=== PATIENT | female | born 1990 | race Caucasian/White ===

== ENCOUNTER 2017-06-29 12:00 | Outpatient (CLI) | payer OTHER | END 2017-06-29 12:01 | disposition home or self-care (01) | LOC: LAB.R 12:00 | PROVIDERS: ATTEND Registered Nurse | DX: Z11.3 Encounter for screening for infections with a predominantly sexual mode of transmission (principal) | CPT/HCPCS: 87491; 87591 ==

== ENCOUNTER 2017-07-11 11:03 | Outpatient (CLI) | payer OTHER ==
[2017-07-11 12:28] LABS: THYROID STIMULATING HORMONE 0.94 uIU/mL (0.34-5.60)
[2017-07-11 12:34] LABS: PROLACTIN 4.95 ng/mL
== END 2017-07-11 11:04 | disposition home or self-care (01) ==
LOC: LAB 11:03
PROVIDERS: ATTEND Registered Nurse
DX: Z31.49 Encounter for other procreative investigation and testing (principal)
CPT/HCPCS: 36415; 81599; 82627; 84144; 84146; 84402; 84403; 84443

== ENCOUNTER 2017-07-14 16:55 | Outpatient (CLI) | payer OTHER ==
--- NOTE | 2017-07-15 12:01 | Ultrasound Report ---
REVISED: THIS REPORT WAS ORIGINALLY SIGNED ON 07/15/2017 @ 1336. THE PRIMARY CARE PROVIDER FIELD REVISED ON 07/18/2017. PELVIC ULTRASOUND: 07/14/2017 CLINICAL INDICATION: Difficulty getting . TECHNIQUE: Transabdominal pelvic ultrasound performed for global evaluation. Transvaginal pelvic ultrasound performed for detailed evaluation. Real-time scanning performed and static images obtained. FINDINGS: The uterus is anteverted, measuring 8.5 x 4.8 x 3.2 cm. The endometrial echo complex measures 13 mm. No focal myometrial lesion is present. The right ovary measures 3.9 x 2.0 x 1.5 cm, and is unremarkable. The left ovary measures 3.6 x 3.2 x 2.3 cm, and demonstrates a 2.2 cm hemorrhagic cyst. Trace free fluid is present. IMPRESSION: SMALL LEFT HEMORRHAGIC CYST. NORMAL UTERUS AND RIGHT OVARY. TD: 07/15/2017 12:00 MTDTerry
== END 2017-07-14 16:56 | disposition home or self-care (01) ==
LOC: DI 16:55
PROVIDERS: ATTEND Registered Nurse
DX: Z31.49 Encounter for other procreative investigation and testing (principal); N83.202 Unspecified ovarian cyst, left side
CPT/HCPCS: 76830; 76856

== ENCOUNTER 2017-08-08 10:01 | Outpatient (CLI) | payer OTHER | END 2017-08-08 10:02 | disposition home or self-care (01) | LOC: LAB 10:01 | PROVIDERS: ATTEND Registered Nurse | DX: Z31.89 Encounter for other procreative management (principal) | CPT/HCPCS: 36415; 84144 ==

== ENCOUNTER 2017-08-18 10:43 | Outpatient (CLI) | payer OTHER ==
[2017-08-18] MEDS ORDERED: IOTHALAMATE MEGLUMINE 50 ML VIAL ONE (11:15)
[2017-08-18] MEDS ORDERED: IOTHALAMATE MEGLUMINE 50 ML VIAL IVP ONE (12:22)
--- NOTE | 2017-08-18 13:16 | XRAY Report ---
HYSTEROSALPINGOGRAM: 08/18/2017 COMPARISON: No comparison. INDICATION: Infertility workup. TECHNIQUE: The stoneworking belt sander cannulated the cervix and injected contrast into the endometrial canal. FINDINGS: Total fluoroscopy time: 46 seconds. Total images: 4 The endometrial canal demonstrates a normal morphology. No filling defects or septa. There is bilateral fill of the fallopian tubes with bilateral spill of contrast into the pelvic cavity. IMPRESSION: NEGATIVE HSG. TD: 08/18/2017 13:15 [facility]
== END 2017-08-18 10:44 | disposition home or self-care (01) ==
LOC: DI 10:43
PROVIDERS: ATTEND Registered Nurse
DX: N97.9 Female infertility, unspecified (principal)
CPT/HCPCS: 58340; 74740; Q9961

== ENCOUNTER 2017-10-11 10:02 | Emergency (ER) | payer OTHER ==
[2017-10-11 11:07] LABS: BASOPHILS % (AUTO) 0.3 %; EOSINOPHILS # (AUTO) 0.1 10^3/uL (0.0-0.7); HGB - HEMOGLOBIN 12.2 g/dL (12.0-16.0); LYMPHOCYTES # (AUTO) 0.9 10^3/uL (1.5-3.5); LYMPHOCYTES % (AUTO) 18.5 %; MEAN CORPUSCULAR HEMOGLOBIN 31.8 pg (27.0-31.0); MEAN CORPUSCULAR HGB CONC 34.8 g/dL (32.0-36.0); MEAN CORPUSCULAR VOLUME 91.4 fL (81.0-99.0); MEAN PLATELET VOLUME 8.4 fL (7.9-10.8); MONOCYTES # (AUTO) 0.4 10^3/uL (0.0-1.0); MONOCYTES % (AUTO) 8.6 %; NEUTROPHILS # (AUTO) 3.6 10^3/uL (1.5-6.6); NEUTROPHILS % (AUTO) 71.6 %; PLT - PLATELET COUNT 143 10^3/uL (130-450); RED BLOOD COUNT 3.83 10^6/uL (4.20-5.40); RED CELL DISTRIBUTION WIDTH 12.7 % (12.0-15.0); WHITE BLOOD COUNT 5.1 x10^3/uL (4.8-10.8)
[2017-10-11 11:23] LABS: ALBUMIN 4.3 g/dL (3.2-5.5); ALBUMIN/GLOBULIN RATIO 1.4 (1.0-2.2); BILIRUBIN,TOTAL 0.8 mg/dL (0.2-1.0); CALCIUM 9.1 mg/dL (8.5-10.3); CREATININE 0.4 mg/dL (0.4-1.0); TOTAL PROTEIN 7.4 g/dL (6.7-8.2)
--- NOTE | 2017-10-11 11:42 | ED Physician Documentation ---
PD HPI FEMALE - Stated complaint Stated Complaint: BLEEDING/7WKS PREG - Chief complaint Chief Complaint: General - History obtained from History obtained from: Patient - History of Present Illness Timing - onset: Today Timing - duration: Hours Timing - details: Abrupt onset, Still present Associated symptoms: Vaginal bleeding Contributing factors: OB-HANDY WORKER History: G (1), P (0) Similar symptoms before: Has not had sx before Recently seen: Other (infertility treatment.) - Additional information Additional information: Previously healthy 27 year old female with early who went through intrauterine insemination has established and she thinks that she is about 7-1/2 weeks along and she has not had an ultrasound this . She has had a quantitative hCG at 4 weeks 3 days was 2500. She is developed some spotting this morning and she has passed pea-sized clot. She initially had some brown blood this is followed by some bright red blood on the tissue and the pea-sized clot. She has had some mild cramping all long and during this . Review of Systems Constitutional: denies: Fever Eyes: denies: Decreased vision Ears: denies: Ear pain Nose: denies: Congestion Respiratory: denies: Cough GI: reports: Nausea. denies: Vomiting : denies: Dysuria PD PAST MEDICAL HISTORY - Past Medical History Past Medical History: No - Past Surgical History Past Surgical History: No - Present Medications Home Medications: Ambulatory Orders Medication Instructions Recorded Confirmed Pnv No.121/Iron/Folic Acid 10/11/17 [ Multivitamin Tablet] - Allergies Allergies/Adverse Reactions: Allergies Allergy/AdvReac Type Severity Reaction Status Date / Time amoxicillin AdvReac Hives Verified 10/11/17 10:23 Penicillins AdvReac Hives Verified 10/11/17 10:23 sulfamethoxazole AdvReac Hives Verified 10/11/17 10:23 [From Bactrim] trimethoprim [From Bactrim] AdvReac Hives Verified 10/11/17 10:23 - Social History Does the pt smoke?: No Smoking Status: Never smoker Does the pt drink ETOH?: No Does the pt have substance abuse?: No - Immunizations Immunizations are current?: Yes - POLST Patient has POLST: No PD ED PE NORMAL - Vitals Vital signs reviewed: Yes (normal ) - General General: Alert and oriented X 3, No acute distress, Well developed/nourished - HEENT HEENT: Atraumatic, PERRL, EOMI - Respiratory Respiratory: No respiratory distress - Abdomen Abdomen: Soft, Non tender - Back Back: No CVA TTP, No spinal TTP - Derm Derm: Normal color, Warm and dry, No rash - Extremities Extremities: No deformity, No edema - Neuro Neuro: No motor deficit, No sensory deficit Eye Opening: Spontaneous Motor: Obeys Commands Verbal: Oriented GCS Score: 15 - Psych Psych: Normal mood, Normal affect Results - Vitals Vitals: Vital Signs - 24 hr 10/11/17 10/11/17 10:18 12:26 Temperature 36.6 C Heart Rate 91 68 Respiratory 15 18 Rate Blood Pressure 115/78 101/64 O2 Saturation 99 100 Oxygen O2 Source Room air - Labs Labs: Laboratory Tests 10/11/17 10/11/17 10/11/17 10:55 10:57 10:57 WBC 5.1 RBC 3.83 L Hgb 12.2 Hct 35.0 L MCV 91.4 MCH 31.8 H MCHC 34.8 RDW 12.7 Plt Count 143 MPV 8.4 Neut # 3.6 Lymph # 0.9 L Mineral # 0.4 Eos # 0.1 Baso # 0.0 Absolute Nucleated RBC 0.00 Nucleated RBC % 0.0 Sodium 134 L Potassium 3.6 Chloride 102 Carbon Dioxide 24 Anion Gap 8.0 BUN 8 Creatinine 0.4 Estimated GFR (MDRD) 190 Glucose 87 Calcium 9.1 Total Bilirubin 0.8 AST 17 ALT 15 Alkaline Phosphatase 28 L Total Protein 7.4 Albumin 4.3 Globulin 3.1 Albumin/Globulin Ratio 1.4 Lipase 22 HCG, Quant Urine Color Urine Clarity Urine pH Ur Specific Frederick Urine Protein Urine Glucose (UA) Urine Ketones Urine Occult Blood Urine Nitrite Urine Bilirubin Urine Urobilinogen Ur Leukocyte Esterase Urine RBC Urine WBC Ur Squamous Epith Cells Amorphous Sediment Urine Bacteria Ur Microscopic Review Urine Culture Comments Blood Type A POSITIVE 10/11/17 10/11/17 10:57 12:12 WBC RBC Hgb Hct MCV MCH MCHC RDW Plt Count MPV Neut # Lymph # Mineral # Eos # Baso # Absolute Nucleated RBC Nucleated RBC % Sodium Potassium Chloride Carbon Dioxide Anion Gap BUN Creatinine Estimated GFR (MDRD) Glucose Calcium Total Bilirubin AST ALT Alkaline Phosphatase Total Protein Albumin Globulin Albumin/Globulin Ratio Lipase HCG, Quant 799598.00 Urine Color YELLOW Urine Clarity CLEAR Urine pH 6.0 Ur Specific Frederick 1.010 Urine Protein NEGATIVE Urine Glucose (UA) NEGATIVE Urine Ketones 40 H Urine Occult Blood LARGE H Urine Nitrite NEGATIVE Urine Bilirubin NEGATIVE Urine Urobilinogen 0.2 (NORMAL) Ur Leukocyte Esterase NEGATIVE Urine RBC 6-10 H Urine WBC 0-3 Ur Squamous Epith Cells FEW Squamous Amorphous Sediment Few Urine Bacteria Moderate H Ur Microscopic Review INDICATED Urine Culture Comments INDICATED Blood Type Procedures - Bedside sono Bedside sono by EMP: With use of bedside ultrasound a gestational sac with a diameter consistent with 8 weeks 2 days is present and there is a fetus present inside with a visible heart rate. PD MEDICAL DECISION MAKING - ED course Complexity details: reviewed results, re-evaluated patient, considered differential, d/w patient ED course: 27-year-old primip female with early going through fertility treatment has developed some first trimester spotting and on ultrasound examination appears to have a viable fetus. I have given the patient some reassuring statistics and we will place her on miscarriage precautions. She will follow-up with her HANDY WORKER. Departure - Departure Disposition: 01 Home, Self Care Clinical Impression: Threatened in first trimester Condition: Stable Instructions: ED Miscarriage Poss Follow-Up: PEG CALVO [Primary Care Provider] - Discharge Date/Time: 10/11/17 12:40
[2017-10-11 12:20] LABS: BILIRUBIN,URINE NEGATIVE (NEGATIVE); GLUCOSE, URINE (UA) NEGATIVE (NEGATIVE); KETONES,URINE (UA) 40 mg/dL (NEGATIVE); LEUKOCYTE ESTERASE, URINE NEGATIVE (NEGATIVE); NITRITE,URINE NEGATIVE (NEGATIVE); OCCULT BLOOD,URINE LARGE (NEGATIVE); PROTEIN,URINE NEGATIVE (NEGATIVE); UROBILINOGEN,URINE 0.2 (NORMAL) E.U./dL (NORMAL)
[2017-10-11 12:21] LABS: CLARITY,URINE CLEAR (CLEAR)
[2017-10-11 12:27] VITALS: BP 101/64
[2017-10-11 12:31] LABS: AMORPHOUS SEDIMENT,UR Few /LPF; BACTERIA,URINE Moderate /HPF (None Seen); SQUAMOUS EPITHELIAL CELL,UR FEW Squamous (<= Few)
== END 2017-10-11 12:40 | disposition home or self-care (01) ==
LOC: ED 10:02
DX: O20.0 Threatened abortion (principal)
CPT/HCPCS: 36415; 80053; 81001; 81003; 83690; 84702; 85025; 86900; 86901; 87086; 99283

== ENCOUNTER 2017-10-28 14:59 | Outpatient (CLI) | payer OTHER ==
[2017-10-28 15:22] LABS: BASOPHILS % (AUTO) 0.7 %; EOSINOPHILS # (AUTO) 0.1 10^3/uL (0.0-0.7); HGB - HEMOGLOBIN 12.1 g/dL (12.0-16.0); LYMPHOCYTES % (AUTO) 16.2 %; MEAN CORPUSCULAR HGB CONC 34.8 g/dL (32.0-36.0); MEAN PLATELET VOLUME 8.8 fL (7.9-10.8); MONOCYTES # (AUTO) 0.5 10^3/uL (0.0-1.0); MONOCYTES % (AUTO) 7.8 %; NEUTROPHILS # (AUTO) 4.5 10^3/uL (1.5-6.6); NEUTROPHILS % (AUTO) 74.3 %; PLT - PLATELET COUNT 139 10^3/uL (130-450); RED BLOOD COUNT 3.79 10^6/uL (4.20-5.40); RED CELL DISTRIBUTION WIDTH 12.6 % (12.0-15.0)
[2017-10-28 15:32] LABS: BILIRUBIN,URINE NEGATIVE (NEGATIVE); GLUCOSE, URINE (UA) NEGATIVE (NEGATIVE); KETONES,URINE (UA) >=80 mg/dL (NEGATIVE); LEUKOCYTE ESTERASE, URINE NEGATIVE (NEGATIVE); NITRITE,URINE NEGATIVE (NEGATIVE); OCCULT BLOOD,URINE NEGATIVE (NEGATIVE); PROTEIN,URINE NEGATIVE (NEGATIVE); UROBILINOGEN,URINE 0.2 (NORMAL) E.U./dL (NORMAL)
[2017-10-28 15:33] LABS: CLARITY,URINE CLEAR (CLEAR)
[2017-10-28 16:01] LABS: BACTERIA,URINE Rare /HPF (None Seen); RBC,URINE 0-5 /HPF (0-5); SQUAMOUS EPITHELIAL CELL,UR FEW Squamous (<= Few)
[2017-10-29 17:01] LABS: HIV AG/AB 4TH GEN NON-REACTIVE (NON-REACTIVE)
[2017-10-29 18:06] LABS: HEPATITIS B SURFACE ANTIGEN NON-REACTIVE (NON-REACTIVE); HEPATITIS C ANTIBODY NON-REACTIVE (NON-REACTIVE)
== END 2017-10-28 15:00 | disposition home or self-care (01) ==
LOC: LAB 14:59
PROVIDERS: ATTEND Registered Nurse
DX: Z36.9 Encounter for antenatal screening, unspecified (principal)
CPT/HCPCS: 36415; 81001; 81599; 85025; 86592; 86762; 86803; 86850; 86900; 86901; 87340; 87389

== ENCOUNTER 2018-01-05 12:30 | Outpatient (CLI) | payer OTHER ==
--- NOTE | 2018-01-05 16:44 | Ultrasound Report ---
Procedure Date: 01/05/2018 Accession Number: [id number] / [id number] Procedure: US - OB Detailed Eval CPT Code: FULL RESULT: EXAM: OB Detailed Eval DATE: 01/05/2018 2:05 PM CLINICAL HISTORY: ENCTR FOR OTHER SPECIFIED SCREENING TECHNIQUE: Real-time scanning was performed with medical sales representative static images obtained. COMPARISON: None LAST MENSTRUAL PERIOD: 08/17/2017 Clinical Age: 20 weeks 1 days US Age: 21 weeks 1 days EFW Hadlock: 412 grams EFW % Hadlock: 95% Heart Rate: 152 bpm EDC: 05/24/2018 US EDC: 05/17/2018 BPD Hadlock: 21 weeks 2 days; Mean mm 50 HC Hadlock: 21 weeks 0 days; Mean mm 186 AC Hadlock: 21 weeks 6 days; Mean mm 169 FL Hadlock: 20 weeks 4 days; Mean mm 34 Presentation: Transverse Placental Location: Anterior Cervical Length: 5.6 cm Amniotic Fluid: SHAYY Subjectively normal FINDINGS: There is a single live intrauterine gestation in variable presentation with an anterior placenta without evidence of previa and a centrally inserted three-vessel cord with a heart rate of 152 beats per minute. Visualization of the facial structures including orbits, nose and lips was somewhat limited due to motion. Visualized portions appear normal. The following anatomic structures were visualized and appear normal: The intracranial contents, including the ventricles and posterior fossa; the spine; the heart, including 4 chamber view and outflow tracts, and diaphragm; the abdominal contents, including the stomach, the bilateral kidneys, and urinary bladder, as well as a normal 3-vessel cord insertion; 4 limbs. IMPRESSION: Single live intrauterine gestation with a sonographic age of 21 weeks and 1 day. Limited visualization of the facial structures due to motion.
== END 2018-01-05 12:31 | disposition home or self-care (01) ==
LOC: DI 12:30
PROVIDERS: ATTEND Nurse Practitioner Obstetrics & Gynecology
DX: Z36.89 Encounter for other specified antenatal screening (principal)
CPT/HCPCS: 76811

== ENCOUNTER 2018-01-13 13:05 | Outpatient (CLI) | payer OTHER ==
--- NOTE | 2018-01-19 14:37 | Ultrasound Report ---
Procedure Date: 01/13/2018 Accession Number: [id number] / [id number] Procedure: US - OB F/U or Repeat CPT Code: FULL RESULT: EXAM: OB F/U or Repeat DATE: 01/13/2018 2:00 PM CLINICAL HISTORY: ENCNTR FOR SUPRVSN OF NORMAL FIRST PREG TECHNIQUE: Real-time scanning was performed with publications sales representative static images obtained. COMPARISON: None LAST MENSTRUAL PERIOD: 08/17/2017 Clinical Age: 21 weeks 2 days US Age: 22 weeks 2 days EFW Hadlock: 489 grams EFW % Hadlock: 90% Heart Rate: 150 bpm BPD Hadlock: 22 weeks 3 days; Mean mm 54 HC Hadlock: 21 weeks 6 days; Mean mm 196 AC Hadlock: 22 weeks 2 days; Mean mm 173 FL Hadlock: 22 weeks 3 days; Mean mm 39 Presentation: Variable Placental Location: Anterior Cervical Length: 5.4 cm Amniotic Fluid: Subjectively normal. FINDINGS: Single live intrauterine gestation with appropriate interval growth. Completion of the survey with good visualization of the nose and lips which appear normal. IMPRESSION: Appropriate interval growth of live intrauterine gestation with sonographic age of 22 weeks and 2 days on the current exam.
== END 2018-01-13 13:06 | disposition home or self-care (01) ==
LOC: DI 13:05
PROVIDERS: ATTEND Nurse Practitioner Obstetrics & Gynecology
DX: Z34.02 Encounter for supervision of normal first pregnancy, second trimester (principal)
CPT/HCPCS: 76816

== ENCOUNTER 2018-02-21 11:41 | Outpatient (CLI) | payer OTHER ==
[2018-02-21 13:12] LABS: BASOPHILS % (AUTO) 0.3 %; EOSINOPHILS # (AUTO) 0.1 10^3/uL (0.0-0.7); EOSINOPHILS % (AUTO) 0.7 %; HGB - HEMOGLOBIN 11.1 g/dL (12.0-16.0); LYMPHOCYTES # (AUTO) 0.9 10^3/uL (1.5-3.5); LYMPHOCYTES % (AUTO) 11.2 %; MEAN CORPUSCULAR HEMOGLOBIN 34.2 pg (27.0-31.0); MEAN CORPUSCULAR HGB CONC 35.6 g/dL (32.0-36.0); MEAN CORPUSCULAR VOLUME 96.1 fL (81.0-99.0); MEAN PLATELET VOLUME 7.3 fL (7.9-10.8); MONOCYTES # (AUTO) 0.5 10^3/uL (0.0-1.0); MONOCYTES % (AUTO) 6.5 %; NEUTROPHILS # (AUTO) 6.7 10^3/uL (1.5-6.6); NEUTROPHILS % (AUTO) 81.3 %; PLT - PLATELET COUNT 167 10^3/uL (130-450); RED BLOOD COUNT 3.24 10^6/uL (4.20-5.40); RED CELL DISTRIBUTION WIDTH 13.8 % (12.0-15.0); WHITE BLOOD COUNT 8.3 x10^3/uL (4.8-10.8)
== END 2018-02-21 11:42 | disposition home or self-care (01) ==
LOC: LAB 11:41
PROVIDERS: ATTEND Registered Nurse
DX: Z34.82 Encounter for supervision of other normal pregnancy, second trimester (principal)
CPT/HCPCS: 36415; 82950; 85025; 86850

== ENCOUNTER 2018-02-24 08:04 | Outpatient (CLI) | payer OTHER | END 2018-02-24 08:05 | disposition home or self-care (01) | LOC: LAB 08:04 | PROVIDERS: ATTEND Registered Nurse | DX: R73.02 Impaired glucose tolerance (oral) (principal) | CPT/HCPCS: 36415; 82951; 82952 ==

== ENCOUNTER 2018-04-26 11:37 | Outpatient (CLI) | payer OTHER ==
[2018-04-28 13:32] LABS: HIV AG/AB 4TH GEN NON-REACTIVE (NON-REACTIVE)
[2018-04-28 14:52] LABS: HEPATITIS C ANTIBODY NON-REACTIVE (NON-REACTIVE)
== END 2018-04-26 11:38 | disposition home or self-care (01) ==
LOC: LAB 11:37
PROVIDERS: ATTEND Registered Nurse
DX: Z33.1 Pregnant state, incidental (principal)
CPT/HCPCS: 36415; 81599; 86803; 87389; 87491; 87591; 87797

== ENCOUNTER 2018-04-26 12:03 | Outpatient (CLI) | payer OTHER | END 2018-04-26 12:04 | disposition home or self-care (01) | LOC: LAB.R 12:03 | PROVIDERS: ATTEND Registered Nurse | DX: Z33.1 Pregnant state, incidental (principal) | CPT/HCPCS: 87491; 87591; 87797 ==

== ENCOUNTER 2018-05-21 00:33 | Inpatient (IN) | payer OTHER ==
[2018-05-21] MEDS ORDERED: SODIUM CHLORIDE FLUSH 0.9% 10 ML SYRINGE IVP PRN (01:00)
[2018-05-21] MEDS: LACTATED RINGERS 1,000 ML IV SCH ×3 (01:50→07:00)
[2018-05-21 02:04] LABS: BASOPHILS # (AUTO) 0.1 10^3/uL (0.0-0.1); BASOPHILS % (AUTO) 0.6 %; EOSINOPHILS # (AUTO) 0.1 10^3/uL (0.0-0.7); EOSINOPHILS % (AUTO) 0.8 %; HGB - HEMOGLOBIN 11.8 g/dL (12.0-16.0); LYMPHOCYTES # (AUTO) 1.1 10^3/uL (1.5-3.5); LYMPHOCYTES % (AUTO) 11.2 %; MEAN CORPUSCULAR HEMOGLOBIN 33.5 pg (27.0-31.0); MEAN CORPUSCULAR HGB CONC 34.3 g/dL (32.0-36.0); MEAN CORPUSCULAR VOLUME 97.7 fL (81.0-99.0); MEAN PLATELET VOLUME 7.8 fL (7.9-10.8); MONOCYTES # (AUTO) 0.8 10^3/uL (0.0-1.0); MONOCYTES % (AUTO) 8.9 %; NEUTROPHILS # (AUTO) 7.4 10^3/uL (1.5-6.6); NEUTROPHILS % (AUTO) 78.5 %; PLT - PLATELET COUNT 134 10^3/uL (130-450); RED BLOOD COUNT 3.51 10^6/uL (4.20-5.40); RED CELL DISTRIBUTION WIDTH 13.4 % (12.0-15.0); WHITE BLOOD COUNT 9.5 x10^3/uL (4.8-10.8)
[2018-05-21] MEDS ORDERED: fent/BUPIV 2 MCG/0.125% 250 ML EP ONE (02:18)
[2018-05-21] MEDS ORDERED: NALOXONE 0.4 MG/ML VIAL IVP PRN (03:09)
[2018-05-21] MEDS ORDERED: NALBUPHINE 10 MG/ML AMP IVP PRN (03:09)
[2018-05-21] MEDS ORDERED: ePHEDrine 50 MG/ML VIAL IVP PRN (03:09)
[2018-05-21] MEDS ORDERED: ONDANSETRON 4 MG/2 ML VIAL IVP PRN (03:09)
[2018-05-21] MEDS ORDERED: diphenhydrAMINE INJ 50 MG/ML VIAL IVP PRN (03:09)
[2018-05-21] MEDS ORDERED: LACTATED RINGERS 500 ML IV ONE (03:09)
[2018-05-21] MEDS ORDERED: METOCLOPRAMIDE 10 MG/2 ML VIAL IVP PRN (03:09)
--- NOTE | 2018-05-21 09:15 | HISTORY & PHYSICAL EXAMINATION ---
Admit History - Visit Reason Visit Reason: Contractions - : 1 Parity: 0 Premature: 0 Ectopic: 0 : 0 Care: positive: [facility] Risk/History: positive: None Complications This : positive: None Smoking Status: Never smoker - Mother's Labs Mother's Blood Type: positive: A Mother's RH: positive: Positive GBS: positive: Group B Step Negative Rubella Status: positive: Equivocal Meds/Allgy - Home Medications Home Medications: Ambulatory Orders Medication Instructions Recorded Confirmed Pnv No.121/Iron/Folic Acid 10/11/17 [ Multivitamin Tablet] - Allergies Allergies/Adverse Reactions: Allergies Allergy/AdvReac Type Severity Reaction Status Date / Time amoxicillin AdvReac Hives Verified 10/11/17 10:23 Penicillins AdvReac Hives Verified 10/11/17 10:23 sulfamethoxazole AdvReac Hives Verified 10/11/17 10:23 [From Bactrim] trimethoprim [From Bactrim] AdvReac Hives Verified 10/11/17 10:23 Review of Systems - Constitutional Constitutional: denies: Fatigue, Fever, Chills, Malaise - Eyes Eyes: denies: Pain, Blurred vision, Spots in vision, Dipolpia - Cardiovascular Cariovascular: denies: Irregular heart rate, Palpitations, Chest pain, Edema - Respiratory Respiratory: denies: Cough, Sputum production, Wheezing - Gastrointestinal Gastrointestinal: denies: Abdominal pain, Constipation, Diarrhea, Change in bowel habits - Genitourinary Genitourinary: denies: Dysuria, Frequency, Urgency, Hematuria - Integumentary Integumentary: denies: Rash, Pruritis - Psychiatric Psychiatric: reports: Anxiety. denies: Depression Physical - Abdominal Exam Vital Signs: Temp Pulse Resp BP Pulse Ox 36.5 C 92 24 124/95 H 99 05/21/18 02:20 05/21/18 02:20 05/21/18 02:20 05/21/18 02:20 05/21/18 02:20 Contraction Frequency (min/apart): 2-4 Contraction Intensity: positive: Strong Uterine Resting Tone: positive: Soft - Monitoring Heart Rate Baseline: 135 Strip Review: positive: Category I - Presentation Presentation: positive: Vertex - Vaginal Exam Membranes: positive: Membranes ruptured Dilation (in cm): 7 Effacement (%): 100 Station: positive: 0 Cervical Position: positive: Anterior - Speculum Exam Speculum Exam Performed: positive: No Plan for Labor - Plan For Labor I expect patient to be DC'd or transferred within 96 hours.: Yes Plan for Labor: HPI: This 28yo @ 39.4wks gestation by L = 8.3wk U/S presented on 05/21/2018 with c/o contractions which pt reports began at approximately 0100 on 05/20/2018. She states the contractions were initially sporadic but progressed in frequency and intensity to the point where she felt they were unbearable. She phoned through the answering service and it as advised she present for evaluation. Upon evaluation she was noted to be 4/80/0, vertex, with intact membranes. Contractions palpated strong every 2-5 minutes with soft resting tone. She was admitted for expectant management secondary to active labor. Her has been complicated by significant anxiety. This occurred following a hx of infertility and a normal HSG on 08/18/2017 which demonstrated bilateral tubal patency. She had a trigger injection with 1 episode of IUI and conceived as a result. She utilized vaginal progesterone x 2 weeks, then discontinued. She denies VB or Lof and reports +FM. Dating criteria: LMP 08/17/2017 First ultrasound 10/14/2017 @ 8.3wks - agrees Serial exams 10-38 weeks - agree OB History: G1: Current [employer]OR [employer] History: No significant Menarche at age 14 No Hx [employer] surgeries No STI hx Last pap 11/02/2017 negative, GC/CT neg PMHx: Infertility, anxiety Surgical Hx: HSG 2018, Tonsillectomy Social Hx: Never smoker, no ETOH or IVDA. Chuck. Family Hx: Unremarkable Medications: PNV Allergies: Amoxicillin, Penicillins, Bactrim labs: Blood type: A pos, antibody neg Hgb 12.1, Hct 34.8, PLT 139 HIV neg Rubella Equivocal Hep B nonreactive GC/Ct neg 28 week labs: 1 hour GTT 137 3hr GTT: 81, 156, 160, 112 Hgb 11.1 Antibody neg Genetic screening: [place] - neg Ultrasounds: 01/05/2018 FAS WNL with exception of poor visualization of facial structures. Anterior placenta, no previa. Size c/w dating. 01/13/2018 f/u: Good visualization of nose and lips which appear normal. Expected growth from previous U/S. Physical Exam: A&O x 4 Atraumatic, normocephalic EOM intact Mood is good Heart RRR w/o M/G/R Lungs CTAB Abdomen gravid, soft, nontender. EFW 3100g Bilateral LE's no edema. Evaluation at 0840 on 05/21/2018: AROM small amount of clear fluid. SVE 7/100/0, anterior, stretchy, vertex Contractions palpate strong every 2-4 minutes lasting 70-110 seconds with soft resting tone. A: 28yo @ 39.4wks gestation by L=8.3wk U/S Active labor AROM @ 0900 05/21/2018 GBS negative FHR Category I P: Continuous monitoring Epidural in place for pain management Frequent position changes/rotation on peanut ball Repeat SVE in 2 hours or sooner PRN. Pt and both verbalized understanding and agree to above plan. They deny further questions or concerns at this time.
[2018-05-21] MEDS: OXYTOCIN/SODIUM CHLORIDE 500 ML IV SCH ×3 (11:20→14:44)
--- NOTE | 2018-05-21 12:40 | DELIVERY NOTE ---
Delivery Note - Labor Labor: positive: Spontaneous, Augmented by ARM - Infant Delivery Method Delivery Method: positive: Spontaneous vaginal delivery - Presentation Presentation: positive: Vertex, YOGI - left occiput anterior - Nuchal Cord Nuchal Cord: positive: None - Amniotic Fluid Description Amniotic Fluid Description: positive: Clear - Episiotomy Type Episiotomy Type: positive: None - Laceration Laceration: positive: 2nd degree - Suture Suture Type: positive: Vicryl Suture Size: positive: 3-0 - Delivery Outcome Delivery Outcome: positive: Livebirth - [place]: positive: Placed in direct skin contact with mother, Suctioned, Bulb syringe, Stimulated, Warmed, Homer used, Warmer used Mumford sex: positive: Female - Cord Cord: positive: 3 vessels - Placenta Placenta: positive: Intact, Manual removal - Estimated Blood Loss Estimated Blood Loss (in cc): 400 - Post Delivery Events Post Delivery Events: positive: No post delivery events - Delivery Comments (Free Text/Narrative) Delivery Comments (Free Text/Narrative): Labor: This 28yo @ 39.4wks by L=8.3wk U/S presented @ 05/21/2018 in active labor. Cervix was 4/80/0, vertex. FHR pattern demonstrated baseline 130s in a Category I pattern throughout. Normal labor course. Epidural placed upon maternal request. AROM occurred at approximately 0840 and was noted to be a scant amount of clear fluid. The patient progressed to c/c/+2 at 1048. Normal SVB of a viable female . No nuchal. Apgars 7/9 at 1 and 5 min respectively at 1119 on 05/21/2018. The was placed on maternal abdomen, stimulated, dried, and placed skin to skin. Pitocin administered via IV for hemostasis. The umbilical cord was allowed to stop pulsating at which time it was doubly clamped by CNM and cut by FOB. Cord blood was obtained. During gentle downward traction on the umbilical cord, the cord evulsed. Difficulty entering uterus through cervix, secondarily the pitocin was decreased followed and was the placenta was then easily manually removed and was found to be morphologically normal and intact at 1127. 3VC. EBL 400mL. Pitocin increased via IV to achieve adequate hemostasis. Uterine fundus firm and there is no excessive bleeding. The perineum, vagina, and cervix were inspected and found to have second degree laceration. Repaired i n standard fashion under sterile conditions using a 3-[address]-1 needle. Vaginal and rectal examination following repair was done. Tissues well approximated. At approximately 10 min the infant began to grunt and wheeze during inspiration accompanied by retractions and nasal flaring. Baby was moved to infant warmer for further evaluation and management by L&D RN and respiratory therapy was called to the bedside. Dr. Yung, attending water leak repairer was called to the bedside. CPAP administered, O2 stats began to stabilize and X-ray performed. At approximately 1250, Dr. Yung determined the baby could move to maternal abdomen and attempt to breastfeed. Family bonding well. Mother is understandably anxious considering recent events. Dr. Yung plans to observe the baby on mother's chest and during feed and then make a determination regarding whether or not the baby requires transfer to a facility with a higher level of care. Mother and baby are currently in stable condition and has been initiated.
[2018-05-21] MEDS ORDERED: MEASLES,MUMPS & RUBELLA VACC 0.5 ML VIAL SUBQ ONE (13:04)
[2018-05-21] MEDS ORDERED: HYDROCORTISONE 1% CREAM 28 GM TUBE PR PRN (13:04)
[2018-05-21] MEDS ORDERED: WITCH HAZEL/GLYCERIN 1 EACH MED..PAD TOP PRN (13:04)
[2018-05-21 15:05] LABS: BASOPHILS # (AUTO) 0.1 10^3/uL (0.0-0.1); BASOPHILS % (AUTO) 0.4 %; EOSINOPHILS % (AUTO) 0.1 %; HGB - HEMOGLOBIN 9.7 g/dL (12.0-16.0); LYMPHOCYTES # (AUTO) 0.7 10^3/uL (1.5-3.5); LYMPHOCYTES % (AUTO) 4.9 %; MEAN CORPUSCULAR HGB CONC 34.4 g/dL (32.0-36.0); MEAN CORPUSCULAR VOLUME 98.7 fL (81.0-99.0); MONOCYTES # (AUTO) 1.3 10^3/uL (0.0-1.0); MONOCYTES % (AUTO) 8.9 %; NEUTROPHILS % (AUTO) 85.7 %; PLT - PLATELET COUNT 102 10^3/uL (130-450); RED BLOOD COUNT 2.87 10^6/uL (4.20-5.40); WHITE BLOOD COUNT 15.1 x10^3/uL (4.8-10.8)
[2018-05-21] MEDS: ACETAMINOPHEN 500 MG TABLET PO SCH ×2 (15:07→23:27)
[2018-05-21] MEDS: IBUPROFEN 800 MG TABLET PO SCH ×2 (15:07→20:56)
--- NOTE | 2018-05-21 17:17 | Ultrasound Report ---
Reason: retained products of placenta Procedure Date: 05/21/2018 Accession Number: [id number] / [id number] Procedure: US - Pelvic Complete CPT Code: FULL RESULT: EXAM: PELVIC ULTRASOUND EXAM DATE: 05/21/2018 04:47 PM. CLINICAL HISTORY: Retained products of placenta. COMPARISON: None. TECHNIQUE: Realtime transabdominal pelvic scan performed to identify the uterus and adnexa and as an overview of other pelvic structures, with static image documentation. FINDINGS: Uterus: 21 x 12 x 11 cm, volume 1500 cc. Anteverted position. Enlarged uterus. Masses: None. Endometrium: Thickened and heterogeneous. It measures up to 3.8 cm in thickness. No focal vascularity. Cervix: There is heterogeneous echogenicity within the cervix. Right Ovary: Not seen. Left Ovary: Not seen. Free Fluid: None. Other: None. IMPRESSION: Enlarged uterus. Heterogeneous thickening of the endometrium and endocervical regions likely represents of a blood clot. No sonographic evidence of focal vascularity. RADIA
[2018-05-21] MEDS: DOCUSATE SODIUM 100 MG CAPSULE PO SCH (20:56)
[2018-05-22] MEDS: IBUPROFEN 800 MG TABLET PO SCH ×5 (03:00→22:29)
[2018-05-22] MEDS: ACETAMINOPHEN 500 MG TABLET PO SCH ×3 (04:21→20:47)
[2018-05-22] MEDS: DOCUSATE SODIUM 100 MG CAPSULE PO SCH ×2 (08:17→20:47)
[2018-05-22 08:25] LABS: BASOPHILS % (AUTO) 0.3 %; EOSINOPHILS # (AUTO) 0.1 10^3/uL (0.0-0.7); EOSINOPHILS % (AUTO) 0.5 %; HGB - HEMOGLOBIN 8.5 g/dL (12.0-16.0); LYMPHOCYTES # (AUTO) 1.2 10^3/uL (1.5-3.5); LYMPHOCYTES % (AUTO) 10.4 %; MEAN CORPUSCULAR HEMOGLOBIN 33.8 pg (27.0-31.0); MEAN CORPUSCULAR HGB CONC 34.6 g/dL (32.0-36.0); MEAN CORPUSCULAR VOLUME 97.7 fL (81.0-99.0); MEAN PLATELET VOLUME 7.4 fL (7.9-10.8); MONOCYTES # (AUTO) 0.8 10^3/uL (0.0-1.0); MONOCYTES % (AUTO) 6.9 %; NEUTROPHILS # (AUTO) 9.4 10^3/uL (1.5-6.6); NEUTROPHILS % (AUTO) 81.9 %; PLT - PLATELET COUNT 110 10^3/uL (130-450); RED BLOOD COUNT 2.53 10^6/uL (4.20-5.40); RED CELL DISTRIBUTION WIDTH 13.2 % (12.0-15.0); WHITE BLOOD COUNT 11.5 x10^3/uL (4.8-10.8)
--- NOTE | 2018-05-22 08:41 | PROVIDER PROGRESS NOTE ---
Subjective - Subjective Subjective: S: Bonding well with baby. without difficulty. Bleeding decreased and is light. No longer light headed and dizzy. Pain intermittently controlled. She has refused her PO pain medications intermittently. Majority of her discomfort is at perineum. Baby no longer experiencing significant stridor. Maternal mood is good. supportive at the bedside. O: BP 101/63, HR92, RR16, T37.2 Hgb 11.8-->9.7-->8.5 Hct 34.3 -->28.3 PLT 134-->102-->110 Ultrasound to evaluate for retained products of conception secondary to fainting episode and intermittent moderate flow bleeding which has now resolved. Ultrasound 1647 05/21/2018: no focal vascularity. Endocervical blood clot Endocervical blood clot expelled with vigorous fundal massage and since expulsion, her bleeding has remained scant. Heart RRR w/o M/G/R, lungs CTAB, abdomen soft and minimally tender with fundus firm at U-1, perineum intact, repair with moderate edema, bilateral LE's no edema. A: 28yo -->P1 PPD#1 s/p TSVD of viable female infant 2nd degree perineal laceration - intact Now hemodynamically stable - repeat CBC 05/23/2018 at 0700. P: Continue routine care and medications. Special attention to today. Continue to closely monitor bleeding. Encouraged taking medication on schedule as prescribed for better pain control. PO ferrous sulfate initiated. Will evaluate for discharge home tomorrow. Objective - Vital Signs/Intake & Output Vital Signs: Vital Signs x48h Temp Pulse Resp BP Pulse Ox 05/22/18 04:10 37.2 C 92 16 101/63 100 05/22/18 01:20 36.9 C 93 20 95/53 L 98 Intake & Output: Intake & Output 05/19/18 05/20/18 05/21/18 05/22/18 23:59 23:59 23:59 23:59 Intake Total 3150.000 360 Output Total 1550 900 Balance 1600.000 -540 - Lab Results Fish Bones: 05/22/18 08:21 Other Labs: Lab Results x24hrs 05/22/18 05/21/18 Range/Units 08:21 14:55 WBC 11.5 H 15.1 H (4.8-10.8) x10^3/uL RBC 2.53 L 2.87 L (4.20-5.40) 10^6/uL Hgb 8.5 L 9.7 L (12.0-16.0) g/dL Hct 24.7 L 28.3 L (37.0-47.0) % MCV 97.7 98.7 (81.0-99.0) fL MCH 33.8 H 34.0 H (27.0-31.0) pg MCHC 34.6 34.4 (32.0-36.0) g/dL RDW 13.2 13.0 (12.0-15.0) % Plt Count 110 L 102 L (130-450) 10^3/uL MPV 7.4 L 8.0 (7.9-10.8) fL Neut # (Auto) 9.4 H 13.0 H (1.5-6.6) 10^3/uL Lymph # (Auto) 1.2 L 0.7 L (1.5-3.5) 10^3/uL Coos # (Auto) 0.8 1.3 H (0.0-1.0) 10^3/uL Eos # (Auto) 0.1 0.0 (0.0-0.7) 10^3/uL Baso # (Auto) 0.0 0.1 (0.0-0.1) 10^3/uL Absolute Nucleated RBC 0.00 0.00 x10^3/uL Nucleated RBC % 0.0 0.0 /100WBC
[2018-05-22 09:13] LABS: ALBUMIN 2.5 g/dL (3.2-5.5); ALKALINE PHOSPHATASE 64 IU/L (42-121); ALT ALANINE AMINOTRANSFERASE 18 IU/L (10-60); AST ASPARTATE AMINOTRANSFERASE 29 IU/L (10-42); BILIRUBIN,TOTAL 0.5 mg/dL (0.2-1.0); BUN - BLOOD UREA NITROGEN < 5 mg/dL (6-20); CALCIUM 7.8 mg/dL (8.5-10.3); CARBON DIOXIDE - CO2 22 mmol/L (21-32); CHLORIDE 108 mmol/L (101-111); CREATININE 0.3 mg/dL (0.4-1.0); GFR - MDRD 263 (>89); GLUCOSE 84 mg/dL (70-100); SODIUM 135 mmol/L (135-145)
[2018-05-22] MEDS: FERROUS SULFATE 325 MG TABLET PO SCH ×2 (09:13→20:47)
[2018-05-23] MEDS: IBUPROFEN 800 MG TABLET PO SCH ×3 (04:24→09:16)
[2018-05-23] MEDS: ACETAMINOPHEN 500 MG TABLET PO SCH ×3 (04:24→09:16)
[2018-05-23 06:45] LABS: BASOPHILS % (AUTO) 0.4 %; EOSINOPHILS # (AUTO) 0.1 10^3/uL (0.0-0.7); EOSINOPHILS % (AUTO) 1.3 %; LYMPHOCYTES # (AUTO) 1.3 10^3/uL (1.5-3.5); MEAN CORPUSCULAR HEMOGLOBIN 33.9 pg (27.0-31.0); MEAN CORPUSCULAR HGB CONC 34.3 g/dL (32.0-36.0); MEAN CORPUSCULAR VOLUME 98.6 fL (81.0-99.0); MEAN PLATELET VOLUME 7.5 fL (7.9-10.8); MONOCYTES # (AUTO) 0.6 10^3/uL (0.0-1.0); NEUTROPHILS # (AUTO) 7.7 10^3/uL (1.5-6.6); NEUTROPHILS % (AUTO) 79.3 %; PLT - PLATELET COUNT 123 10^3/uL (130-450); RED BLOOD COUNT 2.65 10^6/uL (4.20-5.40); RED CELL DISTRIBUTION WIDTH 13.5 % (12.0-15.0); WHITE BLOOD COUNT 9.8 x10^3/uL (4.8-10.8)
--- NOTE | 2018-05-23 08:55 | Discharge Plan ---
Discharge Plan Disposition: 01 Home, Self Care Condition: Good Diet: Regular Activity Restrictions: No Restrictions Shower Restrictions: No Driving Restrictions: No Weight Bearing: Full Weight No Smoking: If you smoke, Please STOP! Call for help. Follow-up with: Shannon Agudelo CNM, ARNP [Provider Admit Priv/Credential] -
--- NOTE | 2018-05-23 09:04 | PROVIDER PROGRESS NOTE ---
Subjective - Subjective Subjective: FINAL PROGRESS NOTE: S: Bonding well with baby. without difficulty. Pain well controlled with oral medications although she does continue to have some discomfort at her perineum which is manageable. She is very anxious this morning as last night she states her baby stopped breathing and her lips turned blue. She states she "felt like I was going to lose her". She did not sleep last night and she states she will not be able to sleep when she goes home unless someone is holding the baby and watching her. She is strongly opposed to medication for management of anxiety. O: BP 112/69, RR16, T36.8, HR96 Hgb 11.8-->9.7-->8.5-->9.0 Hct 34.3-->28.3-->24.7-->26.1 PLT 134-->102-->110-->123 Heart RRR w/o M/G/R, lungs CTAB, abdomen soft and nontender with fundus firm at U-2. Perineum intact and repair without edema. Light lochia rubra. Bilateral LE's no edmea. Teary and anxious this morning. A: 28yo -->P1 PPD#2 s/p TSVD of viable female Second degree laceration - intact P: Reviewed self care and warning s/sx. Encouraged medication for management of anxiety and pt strongly declines. Encouraged continuation of PO ibuprofen and tylenol for pain management. Advised continuation of vitamin while . She intends to f/u at [facility] in 1 week for support visit and in 3 weeks for routine visit. She verbalized understanding and agrees to above plan. She denies further quest ions or concerns at this time. Objective - Vital Signs/Intake & Output Intake & Output: Intake & Output 05/20/18 05/21/18 05/22/18 05/23/18 23:59 23:59 23:59 23:59 Intake Total 3150.000 1110 Output Total 1550 900 Balance 1600.000 210 - Lab Results Fish Bones: 05/23/18 06:35 05/22/18 08:21 Other Labs: Lab Results x24hrs 05/23/18 05/22/18 Range/Units 06:35 08:21 WBC 9.8 (4.8-10.8) x10^3/uL RBC 2.65 L (4.20-5.40) 10^6/uL Hgb 9.0 L (12.0-16.0) g/dL Hct 26.1 L (37.0-47.0) % MCV 98.6 (81.0-99.0) fL MCH 33.9 H (27.0-31.0) pg MCHC 34.3 (32.0-36.0) g/dL RDW 13.5 (12.0-15.0) % Plt Count 123 L (130-450) 10^3/uL MPV 7.5 L (7.9-10.8) fL Neut # (Auto) 7.7 H (1.5-6.6) 10^3/uL Lymph # (Auto) 1.3 L (1.5-3.5) 10^3/uL [place] # (Auto) 0.6 (0.0-1.0) 10^3/uL Eos # (Auto) 0.1 (0.0-0.7) 10^3/uL Baso # (Auto) 0.0 (0.0-0.1) 10^3/uL Absolute Nucleated RBC 0.00 x10^3/uL Nucleated RBC % 0.0 /100WBC Sodium 135 (135-145) mmol/L Potassium 3.8 (3.5-5.0) mmol/L Chloride 108 (101-111) mmol/L Carbon Dioxide 22 (21-32) mmol/L Anion Gap 5.0 L (6-13) BUN < 5 L (6-20) mg/dL Creatinine 0.3 L (0.4-1.0) mg/dL Estimated GFR (MDRD) 263 (>89) Glucose 84 (70-100) mg/dL Calcium 7.8 L (8.5-10.3) mg/dL Total Bilirubin 0.5 (0.2-1.0) mg/dL AST 29 (10-42) IU/L ALT 18 (10-60) IU/L Alkaline Phosphatase 64 (42-121) IU/L Total Protein 5.0 L (6.7-8.2) g/dL Albumin 2.5 L (3.2-5.5) g/dL Globulin 2.5 (2.1-4.2) g/dL Albumin/Globulin Ratio 1.0 (1.0-2.2)
[2018-05-23] MEDS: FERROUS SULFATE 325 MG TABLET PO SCH (09:16)
[2018-05-23] MEDS: DOCUSATE SODIUM 100 MG CAPSULE PO SCH (09:16)
[2018-05-23 09:23] VITALS: BP 106/56
--- NOTE | 2018-05-23 11:34 | Labor Flowsheet ---
Labor Flowsheet Datetime Report Generated by CPN: 05/23/2018 11:34 Datetime: 05/23/2018 09:21 VITAL SIGNS NBP Sys/Judy/Mean (mmHg): 106 : 56 : 68 Pulse: 86 LaborFlag: Labor Datetime: 05/22/2018 07:53 SpO2 (%): 100 Datetime: 05/21/2018 11:15 UTERINE ACTIVITY Monitor Mode: External Frequency (min): 2 Quality: Strong Duration (sec): 40-80 Pattern: Normal: <= 5 Contractions in 10 Minutes Resting Tone (Palpate): Relaxed Comments: FHT while pushing with [id number] Datetime: 05/21/2018 11:00 ASSESSMENT A Monitor Mode: Telemetry FHR Baseline Rate : 145 Variability: Moderate 6-25 bpm Accelerations: 15X15 Decelerations: None Category: Category I Datetime: 05/21/2018 10:48 VAGINAL EXAM Dilatation (cm): 10.0 Effacement (%): 100 Station: 2 Exam by: rian antonio STAGE 2 Pushing: Coached on Pushing; Urge to Push Pushing Position: Pushing with Contractions Pushing Progress: Descent with Pushing Datetime: 05/21/2018 10:45 Oxygen Method: Room Air Datetime: 05/21/2018 10:18 COMMUNICATION Communication: Report Given to @ rian antonio Communication Comments: rian lorrie given report Datetime: 05/21/2018 10:00 Temperature (C): 36.9 Monitor Interventions for FHR: Ultrasound Adjusted Datetime: 05/21/2018 09:45 FHR Baseline Changes: No Baseline Change Patient Position/Activity: Left Lateral Patient Care Comments: pt feeling on and off pressure Datetime: 05/21/2018 08:38 Vaginal Bleeding: None Cervix, Consistency: Soft Cervix, Position: Anterior Datetime: 05/21/2018 08:35 Membrane Status: Ruptured Membranes Rupture Method: Artificial Amniotic Fluid Color: Clear Amniotic Fluid Amount: Scant Datetime: 05/21/2018 08:15 Comfort Measures: Hot/Cold Pack Datetime: 05/21/2018 06:47 Respirations: 18 Datetime: 05/21/2018 04:48 I/O Interventions: Palomares Cath Inserted Datetime: 05/21/2018 04:45 TEACHING Instructional Method: Verbal Plan of Care: Plan of Care Discussed Teaching Comments: palomares catheter Datetime: 05/21/2018 03:30 ASSESSMENT C Category: Category I Datetime: 05/21/2018 03:14 Anesthesia Comments: Epid infusion rate dec to 10ml/hr Datetime: 05/21/2018 02:57 Anesthesia Level Check: T9 Datetime: 05/21/2018 02:39 Epidural Procedure: Loading Dose Datetime: 05/21/2018 02:28 Temperature Route: Oral PAIN Pain Scale: 10 Pain Presence: Intermittent Pain Type: Crushing; Contraction Pain Location: Abdomen; Back Pain Goal: 5 Pain Relief Measures: Comfort Measures (Annotations: Sitting for epidural placement) Datetime: 05/21/2018 02:20 PROCEDURE TIME OUT Procedure Type: 0220 Datetime: 05/21/2018 02:19 Procedure Verify: Correct Patient Identity; Correct Side and Site are Marked; Accurate Procedure Co nsent Form; Agreement on Procedure to be Done; Correct Patient Position; Addressed Need to Administer Antibiotics or Fluids for Irrigation; Safety Precautions Based on Patient History or Medication Use ANESTHESIA Anesthesia Plans: Epidural Epidural Positioning: Sitting Datetime: 05/21/2018 02:17 Provider Notified (Name): TAX MANAGER CPA Flores Notification Reason: Pain; Lab/Diagnostic Study; Patient Request Datetime: 05/21/2018 02:15 Medication Comments: nitrous oxide off Datetime: 05/21/2018 01:45 PATIENT CARE IV/Blood Work: IV Started; IV Bolus Started; IV Bolus Given ml @ 999; Labs Drawn with IV Start Datetime: 05/21/2018 01:27 MEDICATIONS Cervical Ripening Agents Other: nitrous oxide begun Datetime: 05/21/2018 01:23 Pain Coping: Breathing Through Contractions; Crying MATERNAL ASSESSMENT Level of Consciousness: Fully Conscious DTR's/Clonus: DTRs 2+; No Clonus Headache: Denies Nausea/Vomiting: Present RUQ Epigastric Pain: Denies Unit Routine: [place] to Room; Call Parr; Bed; Visiting Policy; Infant Security; Unit Personnel; Dewayne russell; Monitoring
--- NOTE | 2018-05-24 08:33 | DISCHARGE SUMMARY ---
Physician: SIS Moreno DATE OF ADMISSION: 05/21/2018 DATE OF DISCHARGE: 05/23/2018 DIAGNOSES ON ADMISSION 1. A 28-year-old G1, P0, at 39 and 4 weeks gestation. 2. Active labor. 3. GBS negative. DIAGNOSES ON DISCHARGE 1. A 28-year-old -0-0-1, status post spontaneous vaginal delivery on 05/21/2018. 2. Normal recovery. HISTORY OF PRESENT ILLNESS: This is a patient of [facility] [place] who presented on 05/21/2018. Her cervix was 4 cm dilated, 80% effaced, and 0 station, in vertex position. heart rate pattern demonstrated category 1 pattern throughout. Normal labor course. Epidural placed upon maternal request. AROM occurred at approximately 0840 and was noted to be a scant amount of clear fluid. The patient progressed to deliver a viable female with Apgars of 7 and 9 at 1 and 5 minutes, respectively at 11:19 on 05/21/2018. ESTIMATED BLOOD LOSS: 400 mL. Her delivery was complicated only by an avulsed umbilical cord during gentle downward traction during the third stage of labor. This required the placenta to be manually removed. Following manual removal the placenta was found to be morphologically normal and intact after removal. The perineum, vagina and cervix were inspected and found to have a second-degree laceration. The laceration was repaired with 3-[address]-1 needle in a standard fashion under sterile conditions. Approximately 10 minutes , the began to display grunting and inspiratory wheeze accompanied by retractions and nasal flaring. The baby was moved to the warmer and resuscitated using CPAP. Dr. Yung, attending physician, called to the bedside for evaluation of the . Per pt, Dr. Yung suspects laryngomalacia of the . Following initial resuscitation, the baby was moved to maternal abdomen and breastfed without difficulty. The patient has been doing well, although understandably anxious considering the baby's required attention after delivery. Day of delivery Girish walked unassisted to the restroom and experienced an episode of fainting. The nurse was notified, and the patient was assisted back to bed, and was noted to be moderately hypotensive. Pt felt dizzy and light- headed. The patient was given a fluid bolus and an additional bag of Pitocin for management of moderate flow bleeding. An ultrasound was ordered to rule out retained products of conception secondary to moderate flow bleeding and manual removal of the placenta. The ultrasound was performed at 16:47 on 05/21/2018 and was within normal limits, except for an endocervical blood clot, which was expelled shortly after the ultrasound was performed. Since expulsion of the clot, her bleeding has remained scant. She has been normotensive since that episode and entirely asymptomatic. She has been experiencing a significant amount of anxiety. The patient does have baseline anxiety, which she has refused medication for in the past. I reviewed available medications for management of anxiety and discussed the risks and the benefits, and the patient strongly declines. I advised close followup for support and evaluation for depression. The patient states she feels comfortable going home, and is hoping she will feel much better when she is able to get some rest in her own home. She has been given precautions to call if she has any worsening fevers, chills, abdominal pain, increased vaginal bleeding or foul-smelling vaginal lochia. She intends to followup at [facility] in 1 week for support visit, in 3 weeks for routine visit. I expressed to the patient that should she feel her anxiety is increasing and reaches a point where it is becoming unmanageable, that she should either present to the emergency room for further evaluation or call for an urgent visit, at [facility]. The patient verbalized understanding and agrees with the above plan. Her and support person were present during our conversation. They both deny further questions or concerns at this time. TD: 05/24/2018 08:13 ESTEFANAI
== END 2018-05-23 11:05 | disposition home or self-care (01) | DRG 807 ==
LOC: WFO 00:33 → FBP 00:34 → WFO 00:59 → FBP 01:00
PROVIDERS: ADMIT Nurse Practitioner Obstetrics & Gynecology; ATTEND Nurse Practitioner Obstetrics & Gynecology
PROC: 10E0XZZ Delivery of Products of Conception, External Approach (ICD-10-PCS; principal; 2018-05-21)
PROC: 0KQM0ZZ Repair Perineum Muscle, Open Approach (ICD-10-PCS; 2018-05-21)
PROC: 10907ZC Drainage of Amniotic Fluid, Therapeutic from Products of Conception, Via Natural or Artificial Opening (ICD-10-PCS; 2018-05-21)
DX: O99.344 Other mental disorders complicating childbirth (principal); Z37.0 Single live birth; F41.9 Anxiety disorder, unspecified; O70.1 Second degree perineal laceration during delivery; O69.89X0 Labor and delivery complicated by other cord complications, not applicable or unspecified; O90.81 Anemia of the puerperium; Z3A.39 39 weeks gestation of pregnancy
CPT/HCPCS: 36415; 76856; 80053; 85025; 99213

== ENCOUNTER 2018-06-06 19:17 | Emergency (ER) | payer OTHER ==
--- NOTE | 2018-06-06 20:10 | ED Physician Documentation ---
History of Present Illness - Stated complaint Stated Complaint: POST EPISIOTOMY PX/FEVER/CHILLS - Chief complaint Chief Complaint: Wound - History obtained from History obtained from: Patient - History of Present Illness Timing: How many weeks ago (2) Pain level now: 8 Improved by: lying still Worsened by: movement, sitting (when pressure is placed on vaginal area) - Additonal information Additional information: had vaginal delivery of her first and only child 2 weeks ago; had episiotomy during birthing procedure. She has had "pulling" and "burning" discomfort in the area (vaginal) since the delivery that has steadily worsened. She saw her bench lay out technician 1 week ago and was told that some of the stitches had "torn" and was given option of waiting to see if healing would proceed on own vs. replacing the stitches. Patient elected to wait, but has continued to have gradually worsening pain that now involves full body aches, Tmax 99.4. She contacted her bench lay out technician tonight and was advised to go to ED for evaluation. She has appointment tomorrow with bench lay out technician. She is breast feeding; says she has bilateral breast tenderness but feels this is the same as the sensitivity her entire body is having (also feels uncomfortable when she is touched anywhere; generalized aches, pains) Review of Systems Constitutional: reports: Chills. denies: Fever (Tmax 99.4), Sweats Respiratory: reports: Reviewed and negative GI: reports: Reviewed and negative : denies: Dysuria (she has pain when she sits down to urinate, but urinating itself does not make it worse), Frequency Skin: denies: Rash Musculoskeletal: denies: Neck pain, Back pain PD PAST MEDICAL HISTORY - Past Medical History Past Medical History: No Cardiovascular: None Respiratory: None Neuro: None Endocrine/Autoimmune: None GI: None DIRECTOR OF PSYCHOLOGY: None : None HEENT: None Psych: None Musculoskeletal: None Derm: None - Past Surgical History Past Surgical History: No - Present Medications Home Medications: Ambulatory Orders Medication Instructions Recorded Confirmed Pnv No.121/Iron/Folic Acid 10/11/17 [ Multivitamin Tablet] Clindamycin HCl [Clindamycin 300MG 300 mg PO Q6H #39 capsule 06/06/18 CAP] - Allergies Allergies/Adverse Reactions: Allergies Allergy/AdvReac Type Severity Reaction Status Date / Time amoxicillin AdvReac Hives Verified 10/11/17 10:23 Penicillins AdvReac Hives Verified 10/11/17 10:23 sulfamethoxazole AdvReac Hives Verified 10/11/17 10:23 [From Bactrim] trimethoprim [From Bactrim] AdvReac Hives Verified 10/11/17 10:23 - Social History Does the pt smoke?: No Smoking Status: Never smoker Does the pt drink ETOH?: No Does the pt have substance abuse?: No - Immunizations Immunizations are current?: Yes - POLST Patient has POLST: No PD ED PE NORMAL - Vitals Vital signs reviewed: Yes - General General: Alert and oriented X 3, No acute distress, Well developed/nourished - Abdomen Abdomen: Soft, Non tender - Back Back: No CVA TTP - Derm Derm: Normal color, Warm and dry PD ED PE EXPANDED - Female Female : Hot Dip Plater present (NADIA Roland) Female visual: 1 - deformity (0.5cm wide x 1cm long opening c/w dehisced area of episiotomy. granulation tissue without discharge noted; trace erythema without sharp margins. exquisitely tender) Results - Vitals Vitals: Vital Signs - 24 hr 06/06/18 19:21 Temperature 37.1 C Heart Rate 111 H Respiratory 18 Rate Blood Pressure 122/84 H O2 Saturation 99 Oxygen O2 Source Room air PD MEDICAL DECISION MAKING - ED course Complexity details: considered differential, d/w patient, d/w emergency management consultant ED course: D/W Dr. Gayle, recommends IM ceftriaxone and PO/Rx clindamycin. Does not recommend testing at this time based on HPI and the description of my findings, combined with the quick f/u patient has (already scheduled for tomorrow). Patient expresses understanding of, and comfort with, this plan. Departure - Departure Disposition: 01 Home, Self Care Clinical Impression: Episiotomy dehiscence Condition: Good Instructions: ED Wound Check Post Op No Infec, ED Post Op Pain Follow-Up: Shannon Agudelo CNM, SCHOOL PSYCHOLOGIST [Provider Admit Priv/Credential] - (Tomorrow as scheduled ) Prescriptions: Clindamycin HCl [Clindamycin 300MG CAP] 300 mg PO Q6H #39 capsule
[2018-06-06] MEDS ORDERED: LIDOCAINE 1% 2 ML VIAL SUBQ ONE (20:38)
[2018-06-06] MEDS ORDERED: cefTRIAXone 1 GM VIAL IM STA (20:38)
[2018-06-06] MEDS ORDERED: CLINDAMYCIN 150 MG CAPSULE PO STA (20:39)
[2018-06-06 21:11] VITALS: BP 118/76
== END 2018-06-06 21:21 | disposition home or self-care (01) ==
LOC: ED 19:17
DX: O90.1 Disruption of perineal obstetric wound (principal)
CPT/HCPCS: 96372; 99283; A9270

== ENCOUNTER 2018-07-02 23:58 | Emergency (ER) | payer OTHER ==
[2018-07-03] MEDS ORDERED: CLINDAMYCIN 150 MG CAPSULE PO STA (00:58)
--- NOTE | 2018-07-03 01:12 | ED Physician Documentation ---
History of Present Illness - Stated complaint Stated Complaint: NENITA BREAST PAIN,NURSING - Chief complaint Chief Complaint: General - History obtained from History obtained from: Patient - History of Present Illness Timing: How many weeks ago (3) Pain level max: 3 Pain level now: 3 Severity Comments: mild Quality: burning Radiates to: nipple Improved by: warm showers, Worsened by: Associated symptoms: warm breasts, redness - Treatment prior to arrival Treatment prior to arrival: Clindamycin due to pen allergy Review of Systems Constitutional: reports: Reviewed and negative Eyes: reports: Reviewed and negative Ears: reports: Reviewed and negative Nose: reports: Reviewed and negative Throat: reports: Reviewed and negative Cardiac: reports: Reviewed and negative Respiratory: reports: Reviewed and negative GI: reports: Reviewed and negative : reports: Reviewed and negative Skin: reports: Reviewed and negative Musculoskeletal: reports: Reviewed and negative Neurologic: reports: Reviewed and negative Psychiatric: reports: Reviewed and negative Endocrine: reports: Reviewed and negative Immunocompromised: reports: Reviewed and negative PD PAST MEDICAL HISTORY - Past Medical History Cardiovascular: None Respiratory: None Neuro: None Endocrine/Autoimmune: None GI: None PURIFICATION OPERATOR: None : None HEENT: None Psych: None Musculoskeletal: None Derm: None Other Past Medical History: Reviewed and not pertinent - Past Surgical History Past Surgical History: No Other past surgical history: Reviewed and not pertinent - Present Medications Home Medications: Ambulatory Orders Medication Instructions Recorded Confirmed Pnv No.121/Iron/Folic Acid 10/11/17 [ Multivitamin Tablet] Clindamycin HCl [Clindamycin 300MG 300 mg PO Q6H #40 capsule 07/03/18 CAP] Fluconazole [Diflucan] 0 mg PO DAILY 07/03/18 07/03/18 - Allergies Allergies/Adverse Reactions: Allergies Allergy/AdvReac Type Severity Reaction Status Date / Time amoxicillin AdvReac Hives Verified 07/03/18 00:10 Penicillins AdvReac Hives Verified 07/03/18 00:10 sulfamethoxazole AdvReac Hives Verified 07/03/18 00:10 [From Bactrim] trimethoprim [From Bactrim] AdvReac Hives Verified 07/03/18 00:10 - Living Situation Living Situation: reports: Alone Living Arrangement: reports: At home - Social History Does the pt smoke?: No Smoking Status: Never smoker Does the pt drink ETOH?: No Does the pt have substance abuse?: No - Family History Family history: reports: Other (Reviewed and not pertinent) - Immunizations Immunizations are current?: Yes - POLST Patient has POLST: No PD ED PE NORMAL - Vitals Vital signs reviewed: Yes - General General: Alert and oriented X 3, No acute distress - HEENT HEENT: PERRL - Neck Neck: Supple, no meningeal sign - Cardiac Cardiac: RRR, No murmur - Respiratory Respiratory: Clear bilaterally, Other (Breast exam unremarkable. No fluctuance. No redness.Generalized tenderness.) - Abdomen Abdomen: Normal bowel sounds, Soft, Non tender, Non distended - Derm Derm: Warm and dry - Extremities Extremities: No deformity - Neuro Neuro: Alert and oriented X 3 - Psych Psych: Normal mood, Normal affect Results - Vitals Vitals: Vital Signs - 24 hr 07/03/18 07/03/18 00:04 00:21 Temperature 37.8 C H 37.7 C H Heart Rate 79 138 H Respiratory 16 18 Rate Blood Pressure 116/70 113/72 O2 Saturation 90 L 99 Oxygen O2 Source Room air PD MEDICAL DECISION MAKING - ED course Complexity details: re-evaluated patient, considered differential, d/w patient ED course: 28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 Unremarkable exam with no clinical evidence of abscess. Discharged with course of clindamycin and primary care follow-up. Departure - Departure Disposition: 01 Home, Self Care Clinical Impression: Mastitis Condition: Good Instructions: ED Breast Infec Follow-Up: Your, PCP [Other] Prescriptions: Clindamycin HCl [Clindamycin 300MG CAP] 300 mg PO Q6H #40 capsule Comments: Apply warm compresses and breast-feed as often as you are able. Take antibiotics as prescribed. Follow-up with PCP within 24 hours. Return with worsening symptoms.
[2018-07-03 01:18] VITALS: BP 124/66
== END 2018-07-03 01:18 | disposition home or self-care (01) ==
LOC: ED 23:58
DX: N61.0 Mastitis without abscess (principal); Z88.0 Allergy status to penicillin
CPT/HCPCS: 99283; A9270

== ENCOUNTER 2019-11-17 08:49 | Outpatient (CLI) | payer OTHER ==
--- NOTE | 2019-11-17 18:22 | Ultrasound Report ---
PROCEDURE: OB First Trimester INDICATIONS: POSITIVE TEST OUTSIDE/PRIOR DATING DATA: Last menstrual period (LMP): 09/08/2019. LMP-based estimated date of delivery (JAMIE): 06/14/2020. First dating scan (date and location): 11/17/2019. Estimated date of delivery (JAMIE) from first dating scan: 06/14/2020. TECHNIQUE: Real-time scanning was performed of the fetus and maternal pelvic organs, with image documentation. COMPARISON: None FINDINGS: Embryo: There is an intrauterine gestational sac seen, with a pole present, which measures 4.5 cm, which corresponds to an estimated gestational age of 10 weeks 0 days. cardiac activity is seen, with a measured heart rate of 177 bpm. Subchorionic hemorrhage can be seen superior to the gest ational sac, measuring 7 x 12 x 6 mm. Measurement variability in dating: +/- 4 weeks by LMP, +/- 7 days by mean sac diameter (use before 6 weeks gestation if crown-rump length not able to be measured), +/- 5 days by crown-rump length (6-12 weeks gestation). Maternal organs: Ovaries are unremarkable, with a left ovarian corpus luteum seen.. Limited images through the kidneys demonstrate no hydronephrosis. IMPRESSION: Single live intrauterine . No significant discrepancy is found between the estimated gestational age based upon these images and the estimated gestational age based upon the given date of the last menstrual period. Subchorionic hemorrhage is seen superior to the gestational sac measuring 7 x 12 x 6 mm. Close clinical follow-up with serial beta hCG measurements are recommended, as clinically appropriate . Reviewed by: Oleksandr Ochoa MD on 11/17/2019 5:21 PM SWETHA Approved by: Oleksandr Ochoa MD on 11/17/2019 5:21 PM SWETHA Station ID: [id number]
== END 2019-11-17 08:50 | disposition home or self-care (01) ==
LOC: DI 08:49
PROVIDERS: ATTEND Advanced Practice Midwife
DX: O46.91 Antepartum hemorrhage, unspecified, first trimester (principal); Z3A.10 10 weeks gestation of pregnancy
CPT/HCPCS: 76801

== ENCOUNTER 2019-11-26 09:15 | Outpatient (CLI) | payer OTHER ==
[2019-11-26 10:17] LABS: MUDS CUTOFF CONCENTRATIONS CUTOFF CONC BELOW:
[2019-11-26 10:22] LABS: BILIRUBIN,URINE NEGATIVE (NEGATIVE); GLUCOSE, URINE (UA) NEGATIVE (NEGATIVE); KETONES,URINE (UA) NEGATIVE (NEGATIVE); LEUKOCYTE ESTERASE, URINE NEGATIVE (NEGATIVE); NITRITE,URINE NEGATIVE (NEGATIVE); OCCULT BLOOD,URINE NEGATIVE (NEGATIVE); PROTEIN,URINE NEGATIVE (NEGATIVE); UROBILINOGEN,URINE 0.2 (NORMAL) E.U./dL (NORMAL)
[2019-11-26 10:26] LABS: CLARITY,URINE CLEAR (CLEAR)
[2019-11-26 10:47] LABS: AMPHETAMINE SCREEN,URINE NEGATIVE (NEGATIVE); BENZODIAZEPINES SCREEN, URINE NEGATIVE (NEGATIVE); COCAINE SCREEN URINE NEGATIVE (NEGATIVE); METHADONE SCREEN, URINE NEGATIVE (NEGATIVE); METHAMPHETAMINES SCREEN, URINE NEGATIVE (NEGATIVE); OPIATE SCREEN, URINE NEGATIVE (NEGATIVE); OXYCODONE SCREEN, URINE NEGATIVE (NEGATIVE); PROPOXYPHENE SCREEN, URINE NEGATIVE (NEGATIVE); TRICYCLIC ANTIDEPRESSANT,URINE NEGATIVE (NEGATIVE)
[2019-11-26 11:29] LABS: BACTERIA,URINE Rare /HPF (None Seen); RBC,URINE 0-5 /HPF (0-5); SQUAMOUS EPITHELIAL CELL,UR RARE Squamous (<= Few)
[2019-11-26 20:20] LABS: CANDIDA GROUP DNA NEGATIVE (NEGATIVE); CANDIDA KRUSEI DNA NEGATIVE (NEGATIVE); TRICHOMONAS VAGINALIS DNA NEGATIVE (NEGATIVE)
[2019-11-26 21:13] LABS: TRICHOMONAS VAGINALIS DNA NEGATIVE (NEGATIVE)
== END 2019-11-26 23:59 | disposition home or self-care (01) ==
LOC: LAB.R 09:15
PROVIDERS: ATTEND Advanced Practice Midwife
DX: Z34.90 Encounter for supervision of normal pregnancy, unspecified, unspecified trimester (principal); Z36.89 Encounter for other specified antenatal screening
CPT/HCPCS: 80306; 81001; 87086; 87491; 87591; 87661; 87801

== ENCOUNTER 2019-12-06 07:10 | Outpatient (CLI) | payer OTHER ==
[2019-12-06 12:14] LABS: BASOPHILS % (AUTO) 0.4 %; EOSINOPHILS # (AUTO) 0.1 10^3/uL (0.0-0.7); EOSINOPHILS % (AUTO) 1.1 %; HGB - HEMOGLOBIN 11.9 g/dL (12.0-16.0); LYMPHOCYTES % (AUTO) 20.2 %; MEAN CORPUSCULAR HEMOGLOBIN 31.6 pg (27.0-31.0); MEAN CORPUSCULAR HGB CONC 34.6 g/dL (32.0-36.0); MEAN CORPUSCULAR VOLUME 91.2 fL (81.0-99.0); MEAN PLATELET VOLUME 10.7 fL (7.9-10.8); MONOCYTES # (AUTO) 0.4 10^3/uL (0.0-1.0); MONOCYTES % (AUTO) 8.3 %; NEUTROPHILS # (AUTO) 3.3 10^3/uL (1.5-6.6); NEUTROPHILS % (AUTO) 69.8 %; PLT - PLATELET COUNT 160 10^3/uL (130-450); RED BLOOD COUNT 3.77 10^6/uL (4.20-5.40); RED CELL DISTRIBUTION WIDTH 12.7 % (12.0-15.0); WHITE BLOOD COUNT 4.7 x10^3/uL (4.8-10.8)
[2019-12-07 08:39] LABS: HIV AG/AB 4TH GEN NON-REACTIVE (NON-REACTIVE)
[2019-12-07 12:03] LABS: HEPATITIS B SURFACE ANTIGEN NON-REACTIVE (NON-REACTIVE)
== END 2019-12-06 23:59 | disposition home or self-care (01) ==
LOC: LAB.WCP 07:10
PROVIDERS: ATTEND Advanced Practice Midwife
DX: Z34.90 Encounter for supervision of normal pregnancy, unspecified, unspecified trimester (principal); Z36.89 Encounter for other specified antenatal screening
CPT/HCPCS: 36415; 81599; 85025; 86592; 86762; 86850; 86900; 86901; 87340; 87389; 87522

== ENCOUNTER 2020-02-23 07:19 | Outpatient (CLI) | payer OTHER ==
--- NOTE | 2020-02-23 13:12 | Ultrasound Report ---
PROCEDURE: OB F/U or Repeat INDICATIONS: SUPERVISION OF OUTSIDE/PRIOR DATING DATA: Last menstrual period (LMP): 09/08/2019. LMP-based estimated date of delivery (JAMIE): 06/14/2020. First dating scan (date and location): 11/17/2019. Estimated date of delivery (JAMIE) from first dating scan: 06/14/2020. TECHNIQUE: Real-time scanning was performed of the fetus, with image documentation and biometric measurements. COMPARISON: 01/26/2020, 11/17/2019 FINDINGS: General: A single live intrauterine gestation is present. Presentation: Transverse Placenta: Placental position is anterior, without previa. However, the placenta is low lying, with the inferior edge of the placenta seen 1.1 cm from the internal cervical os on prevoid images and 1.8 cm from the internal cervical os on the post void images. Amniotic fluid index: 16 cm, 63rd percentile for gestational age. heart rate: 166 beats per minute. Maternal cervical canal: 6 cm long; normal length is 2.5 cm or more. biometrics: Biparietal diameter: 6.1 cm equals 24 weeks 5 days Head circumference: 22.6 cm equals 24 weeks 4 days Abdominal circumference: 20.1 cm equals 24 weeks 5 days Femur length: 4.3 cm equals 23 weeks 6 days Estimated gestational age from initial scan: 24 weeks 0 days Composite gestational age from present scan: 24 weeks 2 days Estimated weight and percentile: 696 g, 62nd percentile Measurement variability in biometric dating: +/- 10 days from 12-20 weeks gestation, +/- 2 weeks from 20-30 weeks gestation, +/- 3 weeks at 30 weeks gestation or more. Other: The umbilical artery ratios are 4, 3.6, and 2.8 from proximal to distal IMPRESSION: A low-lying anterior placenta is seen, without la placenta previa. Normal interval growth compared to the prior ultrasound examination. Reviewed by: Oleksandr Ochoa MD on 02/23/2020 12:11 PM SWETHA Approved by: Oleksandr Ochoa MD on 02/23/2020 12:11 PM SWETHA Station ID: [id number]
== END 2020-02-23 07:20 | disposition home or self-care (01) ==
LOC: DI 07:19
PROVIDERS: ATTEND Advanced Practice Midwife
DX: Z34.92 Encounter for supervision of normal pregnancy, unspecified, second trimester (principal)
CPT/HCPCS: 76816

== ENCOUNTER 2020-03-20 08:00 | Outpatient (CLI) | payer OTHER ==
[2020-03-20 09:24] LABS: MEAN CORPUSCULAR HEMOGLOBIN 33.5 pg (27.0-31.0); MEAN CORPUSCULAR HGB CONC 34.5 g/dL (32.0-36.0); MEAN CORPUSCULAR VOLUME 97.3 fL (81.0-99.0); MEAN PLATELET VOLUME 9.2 fL (7.9-10.8); RED BLOOD COUNT 3.28 10^6/uL (4.20-5.40); RED CELL DISTRIBUTION WIDTH 13.7 % (12.0-15.0); WHITE BLOOD COUNT 6.8 x10^3/uL (4.8-10.8)
== END 2020-03-20 08:01 | disposition home or self-care (01) ==
LOC: LAB 08:00
PROVIDERS: ATTEND Nurse Practitioner Obstetrics & Gynecology
DX: Z36.89 Encounter for other specified antenatal screening (principal)
CPT/HCPCS: 36415; 82950; 85027

== ENCOUNTER 2020-04-05 07:20 | Outpatient (CLI) | payer OTHER ==
--- NOTE | 2020-04-05 11:03 | Ultrasound Report ---
PROCEDURE: OB F/U or Repeat INDICATIONS: LOW LYING PLACENTA OUTSIDE/PRIOR DATING DATA: Last menstrual period (LMP): 09/08/2019. LMP-based estimated date of delivery (JAMIE): 06/14/2020. First dating scan (date and location): 11/17/2019. Estimated date of delivery (JAMIE) from first dating scan: 06/14/2020. TECHNIQUE: Real-time scanning was performed of the fetus, with image documentation and biometric measurements. Endovaginal scanning: Not done COMPARISON: 02/23/2020, 01/26/2020, 11/17/2019 FINDINGS: General: A single live intrauterine gestation is present. Presentation: Transverse Placenta: Placental position is low-lying, without previa. The inferior edge of the placenta is seen 1.1 cm from the cervix and also 1.8 centimeters from the cervix post void. Amniotic fluid index: 16 cm, 53rd percentile for gestational age. heart rate: 166 beats per minute. Maternal cervical canal: 6 cm long; normal length is 2.5 cm or more. biometrics: Biparietal diameter: 6.1 cm equals 24 weeks 5 days Head circumference: 22.6 cm equals 24 weeks 4 days Abdominal circumference: 20.1 cm equals 24 weeks 5 days Femur length: 4.3 cm equals 23 weeks 6 days Estimated gestational age from initial scan: 24 weeks 0 days Composite gestational age from present scan: 24 weeks Estimated weight and percentile: 6 and 86 g, 62nd percentile Measurement variability in biometric dating: +/- 10 days from 12-20 weeks gestation, +/- 2 weeks from 20-30 weeks gestation, +/- 3 weeks at 30 weeks gestation or more. Other: On these images, no significant anatomic abnormality is identified. Umbilical artery ratios range from 2.8 to 4. IMPRESSION: Low-lying placenta, without placenta previa. Normal interval growth compared to the prior ultrasound examination. Reviewed by: Oleksandr Ochoa MD on 04/05/2020 10:02 AM SWETHA Approved by: Oleksandr Ochoa MD on 04/05/2020 10:02 AM SWETHA Station ID: [id number]
== END 2020-04-05 07:21 | disposition home or self-care (01) ==
LOC: DI 07:20
PROVIDERS: ATTEND Nurse Practitioner Obstetrics & Gynecology
DX: O44.42 Low lying placenta NOS or without hemorrhage, second trimester (principal); Z3A.24 24 weeks gestation of pregnancy
CPT/HCPCS: 76816

== ENCOUNTER 2020-05-21 08:00 | Outpatient (CLI) | payer OTHER | END 2020-05-21 23:59 | disposition home or self-care (01) | LOC: LAB.R 08:00 | PROVIDERS: ATTEND Nurse Practitioner Obstetrics & Gynecology | DX: Z36.85 Encounter for antenatal screening for Streptococcus B (principal) | CPT/HCPCS: 87797 ==

== ENCOUNTER 2020-06-18 08:18 | Inpatient (IN) | payer OTHER ==
--- OUTSIDE RECORDS SUMMARY | 2020-06-18 08:24 | EXTERNAL MEDICAL SUMMARY RPT | Continuity of Care Document ---
:1990 Demographics Phone Unavailable Preferred Language Unknown Marital Status Unknown Scientologist Affiliation Unknown Race Unknown Ethnic Group Unknown Author Organization [place] Address [address] [place] [address] Phone Care Team Providers Name Role Phone Jammie Unavailable Unavailable Problems date description facility 2020-05-21 00:00 ENCOUNTER FOR SCREENING [facility] FOR STREPTOCOCCUS B 2020-05-21 08:00 ENCOUNTER FOR SCREENING [facility] FOR STREPTOCOCCUS B Allergies date description facility GABAPENTIN [facility] LISINOPRIL [facility] OXYCODONE [facility] PENICILLIN [facility] SCOPOLAMINE [facility] CLONIDINE [facility] SEVELAMER [facility] Penicillins [facility] sulfamethoxazole [facility] trimethoprim [facility] amoxicillin [facility] PENICILLINS [facility] NO KNOWN ALLERGIES [facility] Results Social History date description facility [phone]
--- NOTE | 2020-06-18 09:06 | HISTORY & PHYSICAL EXAMINATION ---
HPI - History of Present Illness HPI Comment/Other: CC: contractions and bleeding HPI: Irregular UCs started this am. Had new bleeding, unhairer than a menses, made her nervous and so came in. No FM overnight but one in triage just now. No LOF. ROS: no cough or fever PMH: neg PSH: tonsills Allergies: amox, PCN, bactrim Meds: PNV SH: no t/e/d FH: no anesthesia problems OB: . Prior preg and delivery were uncomplicated. 8#9oz female epidural. This uncomplicated Initial U/S: 10.0wks c/w LMP for JAMIE of 06/14/2020 A+/Rubella NON-immune MMR Gentic testing: declines FAS: Placenta posterior. SHAYY wnl. EFW 70th%. 3VC. Previa 7mm from os. Follow up in [id number]. f/u US: placenta remains 1.8cm from os. Follow up ordered for 4-6wks F/u U/S: Placenta no previa. Low-lying resolved is 3.1cm from cervical os. Size c/w dating. EFW 50th%tile Glucola -doing Fresh Test alternative-121 TDAP 04/16/2020 Influenza 03/04/2020 GBS NEG HSV: denies self and partner Breast pump Rx provided MOD: . Spouse: Chuck. 18mo Ashleigh. It's a Boy!- John; epidural; pp contraception: uses withdrawl. Aware of risks. Had to use IUI with 1st. Pelvic Floor PT after - history of perineal compromise (tore/retore, +hemorrhoids, skin tags) PAP: 10/2017 neg PMH/PSH - Past Medical History Cardiovascular: positive: None Respiratory: positive: None Neuro: positive: None Endocrine/Autoimmune: positive: None GI: positive: None PHYSICIST CRYOGENICS: positive: None : positive: None HEENT: positive: None Psych: positive: None Musculoskeletal: positive: None Derm: positive: None MRSA Hx?: No Social & Family Hx - Social History Does the pt smoke?: No Smoking Status: Never smoker Does the pt drink ETOH?: No Does the pt have substance abuse?: No - POLST Patient has POLST: No Meds/Allgy - Home Medications Home Medications: Ambulatory Orders Medication Instructions Recorded Confirmed Pnv No.121/Iron/Folic Acid 10/11/17 [ Multivitamin Tablet] Clindamycin HCl [Clindamycin 300MG 300 mg PO Q6H #40 capsule 07/03/18 CAP] Fluconazole [Diflucan] 0 mg PO DAILY 07/03/18 07/03/18 - Allergies Allergies/Adverse Reactions: Allergies Allergy/AdvReac Type Severity Reaction Status Date / Time amoxicillin AdvReac Hives Verified 07/03/18 00:10 Penicillins AdvReac Hives Verified 07/03/18 00:10 sulfamethoxazole AdvReac Hives Verified 07/03/18 00:10 [From Bactrim] trimethoprim [From Bactrim] AdvReac Hives Verified 07/03/18 00:10 Exam - Vital Signs Reviewed Vital Signs: Yes - Physical Exam Comments/Other: AVSS Alert, smiling, NAD US = vertex. EFW irasema 8.75# SVE 4cm with RN No LE edema NST normal baseline, mod LTV, no decels A/P: 30yo at 40w4d by LMP c/w 1st TM US arrives with UC and decreased movement past 40w. Will keep and augment PRN. SVE 4cm as it was 2d ago in clinic. Plans epidural for pain control. --Fetus 8.75# EFW, normal anatomy, declined genetic screening, moderate varibility, intact bag --GBS neg -- will need MMR. Rh+, rub NI. s/p flu and Tdap vax. No other PP issues identified.
[2020-06-18] MEDS ORDERED: fentaNYL 100 MCG/2 ML VIAL IVP PRN ×2 (09:12→18:08)
[2020-06-18] MEDS ORDERED: SODIUM CHLORIDE FLUSH 0.9% 10 ML SYRINGE IVP PRN (09:12)
[2020-06-18] MEDS ORDERED: OXYTOCIN/SODIUM CHLORIDE 500 ML IV PRN (09:12)
[2020-06-18] MEDS ORDERED: CARBOPROST TROMETHAMINE 250 MCG/ML AMP IM PRN (09:12)
[2020-06-18] MEDS ORDERED: miSOPROStoL 200 MCG TABLET BC PRN (09:12)
[2020-06-18] MEDS ORDERED: TRANEXAMIC ACID 1,000 MG in SODIUM CHLORIDE 0.9% 100ML 100 ML IV PRN (09:12)
[2020-06-18] MEDS ORDERED: ONDANSETRON 4 MG/2 ML VIAL IVP PRN ×2 (09:12→18:08)
[2020-06-18] MEDS ORDERED: LIDOCAINE-MPF 1% 30 ML VIAL ID PRN (09:12)
[2020-06-18] MEDS ORDERED: TERBUTALINE 1 MG/ML VIAL SUBQ PRN (09:12)
[2020-06-18] MEDS ORDERED: OXYTOCIN 10 UNIT/ML VIAL IM PRN (09:12)
[2020-06-18] MEDS: LACTATED RINGERS 1,000 ML IV SCH ×3 (10:24→14:06)
--- NOTE | 2020-06-18 10:24 | PROVIDER PROGRESS NOTE ---
Subjective - Subjective Subjective: UC more painful and frequent. SVE /-1 Normal baseline, mod LTV, + accels. Beginning of tracing with likely prolonged accels with periods of broken tracing at return to baseline. Also possible decels but with mod LTV the former is more likely. Pt would like epidural now, AROM after. Anesthesia called.
[2020-06-18 10:26] LABS: BASOPHILS % (AUTO) 0.3 %; EOSINOPHILS % (AUTO) 0.4 %; LYMPHOCYTES % (AUTO) 12.3 %; MEAN CORPUSCULAR HEMOGLOBIN 35.3 pg (27.0-31.0); MEAN CORPUSCULAR HGB CONC 35.3 g/dL (32.0-36.0); MEAN PLATELET VOLUME 10.4 fL (7.9-10.8); MONOCYTES # (AUTO) 0.6 10^3/uL (0.0-1.0); NEUTROPHILS # (AUTO) 6.1 10^3/uL (1.5-6.6); NEUTROPHILS % (AUTO) 78.6 %; PLT - PLATELET COUNT 157 10^3/uL (130-450); RED BLOOD COUNT 3.68 10^6/uL (4.20-5.40); RED CELL DISTRIBUTION WIDTH 13.2 % (12.0-15.0); WHITE BLOOD COUNT 7.7 x10^3/uL (4.8-10.8)
--- NOTE | 2020-06-18 10:50 | ANESTHESIA ---
Pre-Anesthesia VS, & Labs - Diagnosis active labor - Procedure vaginal delivery Height: 5 ft 3 in - NPO Other () - Is Patient ?: Yes - Lab Results Current Lab Results: Laboratory Tests 06/18/20 09:55: WBC 7.7, RBC 3.68 L, Hgb 13.0, Hct 36.8 L, MCV 100.0 H, MCH 35.3 H, MCHC 35.3, RDW 13.2, Plt Count 157, MPV 10.4, Neut # (Auto) 6.1, Lymph # (Auto) 1.0 L, [place] # (Auto) 0.6, Eos # (Auto) 0.0, Baso # (Auto) 0.0, Absolute Nucleated RBC 0.00, Nucleated RBC % 0.0 Fish Bones: 06/18/20 09:55 Home Medications and Allergies Active Medications Acetaminophen (Acetaminophen 325 Mg Tablet) 650 mg PO Q6H PRN PRN Reason: pain Carboprost Tromethamine (Carboprost Tromethamine 250 Mcg/Ml Amp) 250 mcg IM Q15M PRN PRN Reason: Step 4: Hemorrhage protocol Stop: 06/23/20 09:13 Fentanyl (Fentanyl 100 Mcg/2 Ml Vial) 50 mcg IVP Q1H PRN PRN Reason: PAIN Lactated Ringer's (Lr) 1,000 mls @ 150 mls/hr IV .Q6H40M VIN Last Admin: 06/18/20 10:24 Dose: 150 mls/hr Documented by: Oxytocin/Sodium Chloride (Pitocin/Sodium Chloride) 500 mls @ 999 mls/hr IV PRN PRN; Protocol PRN Reason: POST- HEMORR PREVENTION Stop: 06/23/20 09:13 Tranexamic Acid 1,000 mg/ (Sodium Chloride) 110 mls @ 660 mls/hr IV .ONCE PRN PRN Reason: EBL >1200mL and within 3hr Stop: 06/23/20 09:13 Lidocaine HCl (Lidocaine-Mpf 1% 30 Ml Vial) 30 ml ID .ONCE PRN PRN Reason: PERINEAL REPAIR Stop: 06/23/20 09:13 Methylergonovine Maleate (Methylergonovine 0.2 Mg/Ml Vial) 0.2 mg IM .ONCE PRN PRN Reason: Step 2: Hemorrhage protocol Stop: 06/23/20 09:13 Misoprostol (Misoprostol 200 Mcg Tablet) 800 mcg BC .ONCE PRN PRN Reason: Step 3: Hemorrhage protocol Stop: 06/23/20 09:13 Ondansetron HCl (Ondansetron 4 Mg/2 Ml Vial) 4 mg IVP Q4H PRN PRN Reason: Nausea / Vomiting Oxytocin (Oxytocin 10 Unit/Ml Vial) 10 unit IM .ONCE PRN PRN Reason: Step one: If no IV access Stop: 06/23/20 09:13 Sodium Chloride (Sodium Chloride Flush 0.9% 10 Ml Syringe) 10 ml IVP PRN PRN PRN Reason: NEEDED PER PROVIDER ORDERS Last Admin: 06/18/20 10:24 Dose: 10 ml Documented by: Sodium Chloride (Sodium Chloride Flush 0.9% 10 Ml Syringe) 10 ml IVP 0100,0900,1700 IVN Last Admin: 06/18/20 10:24 Dose: 10 ml Documented by: Terbutaline Sulfate (Terbutaline 1 Mg/Ml Vial) 0.25 mg SUBQ Q1H PRN PRN Reason: Category 3 tracing or MD order Pnv No.121/Iron/Folic Acid [ Multivitamin Tablet] 10/11/17 Fluconazole [Diflucan] 0 mg PO DAILY 07/03/18 Iron Allergies/Adverse Reactions: Allergies Allergy/AdvReac Type Severity Reaction Status Date / Time amoxicillin AdvReac Hives Verified 07/03/18 00:10 Penicillins AdvReac Hives Verified 07/03/18 00:10 sulfamethoxazole AdvReac Hives Verified 07/03/18 00:10 [From Bactrim] trimethoprim [From Bactrim] AdvReac Hives Verified 07/03/18 00:10 Anes History & Medical History - Anesthetic History Anesthesia Complications: reports: No previous complications - Medical History Cardiovascular: reports: None Pulmonary: reports: None Gastrointestinal: reports: None Urinary: reports: None Neuro: reports: None Musculoskeletal: reports: None Endocrine/Autoimmune: reports: None Blood Disorders: reports: None Skin: reports: None Smoking Status: Never smoker Psychosocial: reports: No issues indicated - Surgical History Eyes Ears Nose Throat (EENT): Tonsil/Adenoidectomy Exam General: Alert, Oriented x3, Cooperative, No acute distress Dental: WNL Mouth Openin Fingerbreadth Neck Mobility: Normal Mallampati classification: II Plan Anesthesia Type: Epidural Consent for Procedure(s) Verified and Reviewed: Yes Code Status: Attempt Resuscitation ASA classification: 2-Mild systemic disease Is this case an emergency?: No
[2020-06-18] MEDS ORDERED: ROPIVACAINE 0.2% 200 MG/100 ML BAG EP ONE (10:53)
--- NOTE | 2020-06-18 11:36 | PROVIDER PROGRESS NOTE ---
Subjective - Subjective Subjective: Comfortable with epidural 6/100/-1, AROM not performed Objective - Lab Results Fish Bones: 06/18/20 09:55 Other Labs: Lab Results x24hrs 06/18/20 Range/Units 09:55 WBC 7.7 (4.8-10.8) x10^3/uL RBC 3.68 L (4.20-5.40) 10^6/uL Hgb 13.0 (12.0-16.0) g/dL Hct 36.8 L (37.0-47.0) % MCV 100.0 H (81.0-99.0) fL MCH 35.3 H (27.0-31.0) pg MCHC 35.3 (32.0-36.0) g/dL RDW 13.2 (12.0-15.0) % Plt Count 157 (130-450) 10^3/uL MPV 10.4 (7.9-10.8) fL Neut # (Auto) 6.1 (1.5-6.6) 10^3/uL Lymph # (Auto) 1.0 L (1.5-3.5) 10^3/uL [place] # (Auto) 0.6 (0.0-1.0) 10^3/uL Eos # (Auto) 0.0 (0.0-0.7) 10^3/uL Baso # (Auto) 0.0 (0.0-0.1) 10^3/uL Absolute Nucleated RBC 0.00 x10^3/uL Nucleated RBC % 0.0 /100WBC
[2020-06-18] MEDS ORDERED: NALOXONE 0.4 MG/ML VIAL IVP PRN ×2 (13:15→18:08)
[2020-06-18] MEDS ORDERED: ROPIVACAINE 0.2% 200 MG/100 ML BAG EP PRN (13:15)
[2020-06-18] MEDS ORDERED: NALBUPHINE 10 MG/ML AMP IVP PRN (13:15)
[2020-06-18] MEDS ORDERED: ePHEDrine 50 MG/ML VIAL IVP PRN (13:15)
[2020-06-18] MEDS: METHYLERGONOVINE 0.2 MG/ML VIAL IM PRN ×2 (16:46→17:10)
[2020-06-18] MEDS ORDERED: LIDOCAINE 2%-EPI 1:100000 20 ML MDV ONE (16:59)
[2020-06-18] MEDS ORDERED: SODIUM CHLORIDE FLUSH 0.9% 10 ML SYRINGE IVP SCH (17:00)
[2020-06-18] MEDS ORDERED: MIDAZOLAM 2 MG/2 ML VIAL ONE (17:07)
[2020-06-18] MEDS ORDERED: CARBOPROST TROMETHAMINE 250 MCG/ML AMP IM ONE (17:13)
[2020-06-18] MEDS ORDERED: CLINDAMYCIN 600 MG/50 ML 50 ML IV ONE ×2 (17:29→17:30)
[2020-06-18] MEDS ORDERED: OXYTOCIN 10 UNIT/ML VIAL ONE (17:34)
[2020-06-18] MEDS ORDERED: WITCH HAZEL/GLYCERIN 1 PAD TOP PRN (17:55)
[2020-06-18] MEDS ORDERED: HYDROCORTISONE 1% CREAM 28 GM TUBE PR PRN (17:55)
[2020-06-18] MEDS ORDERED: PROPOFOL 200 MG/20 ML VIAL IVP ONE ×2 (17:58→18:02)
[2020-06-18] MEDS ORDERED: GENTAMICIN 350 MG in SODIUM CHLORIDE 0.9% 100ML 100 ML IV ONE (18:00)
[2020-06-18] MEDS ORDERED: SUCCINYLCHOLINE 200 MG/10 ML VIAL ONE (18:02)
[2020-06-18] MEDS ORDERED: LACTATED RINGERS 1,000 ML IV ONE (18:02)
[2020-06-18] MEDS ORDERED: PHENYLEPHRINE 10 MG/ML VIAL ONE (18:03)
[2020-06-18] MEDS ORDERED: ePHEDrine 50 MG/ML VIAL IVP ONE (18:03)
[2020-06-18] MEDS ORDERED: ONDANSETRON 4 MG/2 ML VIAL ONE (18:04)
[2020-06-18 18:07] LABS: BASOPHILS # (AUTO) 0.1 10^3/uL (0.0-0.1); BASOPHILS % (AUTO) 0.3 %; EOSINOPHILS # (AUTO) 0.1 10^3/uL (0.0-0.7); EOSINOPHILS % (AUTO) 0.4 %; HGB - HEMOGLOBIN 12.4 g/dL (12.0-16.0); LYMPHOCYTES # (AUTO) 1.7 10^3/uL (1.5-3.5); LYMPHOCYTES % (AUTO) 11.5 %; MEAN CORPUSCULAR HEMOGLOBIN 32.2 pg (27.0-31.0); MEAN CORPUSCULAR HGB CONC 32.9 g/dL (32.0-36.0); MEAN CORPUSCULAR VOLUME 97.9 fL (81.0-99.0); MEAN PLATELET VOLUME 9.7 fL (7.9-10.8); MONOCYTES # (AUTO) 0.9 10^3/uL (0.0-1.0); MONOCYTES % (AUTO) 5.9 %; NEUTROPHILS # (AUTO) 12.3 10^3/uL (1.5-6.6); NEUTROPHILS % (AUTO) 81.2 %; PLT - PLATELET COUNT 108 10^3/uL (130-450); RED BLOOD COUNT 3.85 10^6/uL (4.20-5.40); RED CELL DISTRIBUTION WIDTH 14.7 % (12.0-15.0); WHITE BLOOD COUNT 15.2 x10^3/uL (4.8-10.8)
[2020-06-18] MEDS ORDERED: MORPHINE 2 MG/ML CARPUJECT IVP PRN (18:08)
[2020-06-18] MEDS ORDERED: ATROPINE ABBOJECT 1 MG/10 ML SYRINGE IVP PRN (18:08)
[2020-06-18] MEDS ORDERED: HYDROmorphone 0.5 MG/0.5 ML SYRINGE IVP PRN (18:08)
[2020-06-18] MEDS ORDERED: METOCLOPRAMIDE 10 MG/2 ML VIAL IVP PRN (18:08)
--- NOTE | 2020-06-18 18:21 | ANESTHESIA POST OP EVALUATION ---
Anesthesia Post Eval - Post Anesthesia Eval Vitals: Last Vital Signs Temp 36.7 C 06/18/20 17:45 Pulse 77 06/18/20 17:50 Resp 17 06/18/20 17:50 BP 111/71 06/18/20 17:50 Pulse Ox 99 06/18/20 17:50 CV Function Including HR & BP: positive: Stable Pain Control: positive: Satisfactory Nausea & Vomiting: positive: Negative Mental Status: positive: Baseline Respiratory Status: Airway Patent Hydration Status: Satisfactory Anesthesia Complications: positive: None
--- NOTE | 2020-06-18 19:20 | OPERATIVE REPORT ---
Operative Report - General Admit Date: 06/18/20 - Other Other Information/Narrative: Preoperative diagnosis: Retained placenta, PPH Postoperative diagnosis: same Procedure: manual placental extraction Surgeon: Louisa Staff Command And Control Officer: none Anesthesia: epidural Estimated Blood Loss: total EBL around 1500cc IV Fluids: 2U PRBC, 2U FFP, crystalloid Urine output: 100cc Counts: correct sponge and instrument Complications: none apparent Disposition: stable to recovery room Prophylaxis: gent 5mg/kg, clinda 900mg Specimens: placentat to pathology Findings: empty uterus by US
--- NOTE | 2020-06-18 19:56 | OPERATIVE REPORT ---
DATE OF SERVICE: 06/18/2020 Physician: Fatou Jasso MD PREOPERATIVE DIAGNOSES 1. Intrauterine at 40 weeks and 4 days. 2. Spontaneous labor. POSTPROCEDURE DIAGNOSES 1. Status post spontaneous vaginal delivery at term. 2. Second-degree perineal laceration. 3. Retained placenta. 4. hemorrhage. PROCEDURES 1. Spontaneous vaginal delivery. 2. Repair of a second-degree laceration. 3. Manual placental extraction. SURGEON: Fatou Jasso MD [employer]CKSHOT SWAGE OPERATOR: None. ANESTHESIA: Spinal. ESTIMATED BLOOD LOSS: Around 1500 mL INTRAVENOUS FLUIDS: Include 2 units of packed red blood cells, 2 units of FFP, and 2 liters of crystalloid with Pitocin. URINE OUTPUT: 100 mL, clear. COUNTS: Correct x2. COMPLICATIONS: None apparent. DISPOSITION: Unstable to the recovery room. PROPHYLAXIS: Gentamicin 5 mg/kg and clindamycin 900 mg given IV. SPECIMENS: Placenta to pathology. FINDINGS: Empty uterus by ultrasound at the end of the extraction. DELIVERY NOTE: Patient was admitted with spontaneous labor at term. She received an epidural for pain control. Her tracing was category 1 until the second stage of labor, where she had periods of category 2 tracing. She also had an unusual amount of antepartum bleeding -- more than expected with bloody show. However, when her membranes were ruptured, the fluid was clear and the placenta did not detach, so I doubt placental abruption. During her second stage, her tracing was category 2, but she was making excellent rapid descent with her pushing and delivered OA over an intact perineum. There was a loose nuchal cord that was reduced. The shoulders and body were easily delivered. The baby was placed on mom's abdomen, [id number]. The baby was warmed, dried and stimulated with a blanket. Pitocin was started for active management of the third stage of labor. The umbilical cord was left intact until it stopped pulsating, which was about 5 minutes of life. The umbilical cord was clamped x2 and cut by the father of the baby. The cord blood was obtained for typing and then the umbilical cord was drained. The patient's placenta did not spontaneously detach. During her time between delivery and her manual placental extraction, she had scant bleeding. Her fundus was firm. We intermittently massaged the uterus and she intermittently Valsalva without any expulsion. She was able to get the baby on the breast during this time, which did not help either. During this time, her second-degree laceration was repaired with a running suture of 2-0 Vicryl to restore normal anatomy. 3RD STAGE OF LABOR: After 30 minutes of no placenta delivery, anesthesia was called to bolus her existing epidural for pain control. Hemorrhage medications were brought into the room and a dose of Methergine was drawn up. The surgeon's hand was placed into the uterine cavity. There was a contraction band above the lower uterine segment, which prohibited my hand's complete entry into the upper uterine cavity. I was able to detach the placenta from the myometrium in the lower part of the placenta and then grasp the placenta and twist to bring it out. The placenta was delivered in chunks. During this time, the patient began to briskly hemorrhage. A dose of Methergine was given. Due to the contraction band, it was impossible to feel whether or not all of the placenta had been extracted or not. The patient was briskly bleeding and so she was rapidly brought to the operating room for further management and probable D and C. As the patient was rolling to the operating room, doses of tranexamic acid and Hemabate were drawn up. OPERATING ROOM: On arrival to the operating room, the patient was moved to the OR bed and placed in low lithotomy in [facility]. I did another uterine sweep and this time, it felt like there were no further products of conception within the uterine cavity. The patient became hypotensive at this time and while her estimated blood loss was difficult to quantify, it was at least 1 liter at this point. She received 2 units of packed red blood cells and 2 units of FFP. She received a second IV line. Her epidural was bolused some more in anticipation of the D and C, which she did not ultimately need. She did not require general anesthesia. An ultrasound revealed that her uterus was empty. She received gentamicin and clindamycin for prophylaxis. Bleeding persisted in being scant. A Jaramillo catheter was placed. After further observation of the bleeding, which was persistently scant and stabilization of her hemodynamic status was performed, she was returned to the recovery room. We will watch her blood counts carefully and watch for any signs of increased bleeding. TD: 06/18/2020 19:36 [facility]
[2020-06-18] MEDS: ACETAMINOPHEN 325 MG TABLET PO PRN (20:30)
[2020-06-19] MEDS: IBUPROFEN 600 MG TABLET PO SCH ×4 (00:56→18:37)
[2020-06-19] MEDS: ACETAMINOPHEN 325 MG TABLET PO PRN ×3 (06:46→18:36)
[2020-06-19 07:37] LABS: BASOPHILS % (AUTO) 0.2 %; EOSINOPHILS % (AUTO) 0.4 %; HGB - HEMOGLOBIN 10.8 g/dL (12.0-16.0); LYMPHOCYTES # (AUTO) 0.7 10^3/uL (1.5-3.5); LYMPHOCYTES % (AUTO) 6.5 %; MEAN CORPUSCULAR HEMOGLOBIN 32.9 pg (27.0-31.0); MEAN CORPUSCULAR HGB CONC 33.4 g/dL (32.0-36.0); MEAN CORPUSCULAR VOLUME 98.5 fL (81.0-99.0); MEAN PLATELET VOLUME 10.4 fL (7.9-10.8); MONOCYTES # (AUTO) 0.9 10^3/uL (0.0-1.0); MONOCYTES % (AUTO) 8.5 %; NEUTROPHILS # (AUTO) 8.8 10^3/uL (1.5-6.6); NEUTROPHILS % (AUTO) 83.6 %; PLT - PLATELET COUNT 106 10^3/uL (130-450); RED BLOOD COUNT 3.28 10^6/uL (4.20-5.40); RED CELL DISTRIBUTION WIDTH 15.7 % (12.0-15.0); WHITE BLOOD COUNT 10.5 x10^3/uL (4.8-10.8)
--- NOTE | 2020-06-19 09:49 | PROVIDER PROGRESS NOTE ---
Objective - Vital Signs/Intake & Output Reviewed Vital Signs: Yes Vital Signs: Vital Signs x48h Temp Pulse Resp BP BP Pulse Ox 06/19/20 08:26 98.8 F 94 17 98/47 L 98 06/19/20 03:03 98.8 F 88 16 101/52 L 98 Intake & Output: Intake & Output 06/16/20 06/17/20 06/18/20 06/19/20 23:59 23:59 23:59 23:59 Intake Total 665 Output Total 1650 1325 Balance -985 -1325 - Lab Results Fish Bones: 06/19/20 07:13 Other Labs: Lab Results x24hrs 06/19/20 06/18/20 06/18/20 Range/Units 07:13 18:00 09:55 WBC 10.5 15.2 H (4.8-10.8) x10^3/uL RBC 3.28 L 3.85 L (4.20-5.40) 10^6/uL Hgb 10.8 L 12.4 (12.0-16.0) g/dL Hct 32.3 L 37.7 (37.0-47.0) % MCV 98.5 97.9 (81.0-99.0) fL MCH 32.9 H 32.2 H (27.0-31.0) pg MCHC 33.4 32.9 (32.0-36.0) g/dL RDW 15.7 H 14.7 (12.0-15.0) % Plt Count 106 L 108 L (130-450) 10^3/uL MPV 10.4 9.7 (7.9-10.8) fL Neut # (Auto) 8.8 H 12.3 H (1.5-6.6) 10^3/uL Lymph # (Auto) 0.7 L 1.7 (1.5-3.5) 10^3/uL [place] # (Auto) 0.9 0.9 (0.0-1.0) 10^3/uL Eos # (Auto) 0.0 0.1 (0.0-0.7) 10^3/uL Baso # (Auto) 0.0 0.1 (0.0-0.1) 10^3/uL Absolute Nucleated RBC 0.00 0.00 x10^3/uL Nucleated RBC % 0.0 0.0 /100WBC Blood Type Antibody Screen Crossmatch IS Only See Detail 06/18/20 06/18/20 Range/Units 09:55 09:55 WBC 7.7 (4.8-10.8) x10^3/uL RBC 3.68 L (4.20-5.40) 10^6/uL Hgb 13.0 (12.0-16.0) g/dL Hct 36.8 L (37.0-47.0) % MCV 100.0 H (81.0-99.0) fL MCH 35.3 H (27.0-31.0) pg MCHC 35.3 (32.0-36.0) g/dL RDW 13.2 (12.0-15.0) % Plt Count 157 (130-450) 10^3/uL MPV 10.4 (7.9-10.8) fL Neut # (Auto) 6.1 (1.5-6.6) 10^3/uL Lymph # (Auto) 1.0 L (1.5-3.5) 10^3/uL [place] # (Auto) 0.6 (0.0-1.0) 10^3/uL Eos # (Auto) 0.0 (0.0-0.7) 10^3/uL Baso # (Auto) 0.0 (0.0-0.1) 10^3/uL Absolute Nucleated RBC 0.00 x10^3/uL Nucleated RBC % 0.0 /100WBC Blood Type A POSITIVE Antibody Screen NEGATIVE Crossmatch IS Only - Other Results/Comments Other Results/Comments: S: Patient eating, urinating, ambulating, and well. No heavy bleeding or mood problems. Pain is under good control. No PEREIRA, CP, SOB, or dizziness. Alert, smiling, no apparent distress Abd soft, nontender, non-distended Fundus nontender at umbilicus Trace lower extremity edema Impression and plan: 30yo P2 PPD #1 s/p at term followed by PPH due to dysfunctal placenta, manual placental extraction. Good tone throughout. Got 2 U of both PRBC and FFP in OR. Bleeding is scant, VSS, no sx of anemia. Hct of 32 is likely still equilibrating. Obs today, recheck labs PRN anemia sx. Otherwise plan for routine care.
[2020-06-19] MEDS: DOCUSATE SODIUM 100 MG CAPSULE PO SCH (18:37)
[2020-06-20] MEDS: ACETAMINOPHEN 325 MG TABLET PO PRN ×2 (01:00→07:37)
[2020-06-20] MEDS: IBUPROFEN 600 MG TABLET PO SCH ×2 (01:00→07:38)
[2020-06-20] MEDS: DOCUSATE SODIUM 100 MG CAPSULE PO SCH (07:38)
[2020-06-20 08:03] VITALS: BP 111/61
--- NOTE | 2020-06-20 08:59 | Discharge Plan ---
Discharge Plan Problem Reviewed?: Yes Disposition: Home, Self Care Condition: Good Diet: Regular Activity Restrictions: No Restrictions Shower Restrictions: No Driving Restrictions: No Additional Instructions or Follow Up instructions: Nothing in the vagina for 6 weeks: No intercourse, tampons, douching Call for: -Fever greater than 100.5 -Pain that worsens over time -Heavy bleeding in which you are soaking a pad an hour for 2 hours in a row -Incisions that become hot, firm, or open -Worsening of mood, hallucinations, feeling like you want to hurt yourself or others -If one leg is swollen, hot, and tender Ok to shower, drive, and walk up stairs No Smoking: If you smoke, Please STOP! Call for help. Follow-up with: Myesha Cain ARNP [Provider Admit Priv/Credential] - 1 Week
--- NOTE | 2020-06-20 11:49 | Labor Flowsheet ---
Labor Flowsheet Datetime Report Generated by CPN: 06/20/2020 11:49 Datetime: 06/18/2020 16:46 MEDICATIONS Medication Comments: Methergine 0.2mg IM Datetime: 06/18/2020 16:42 Stage 2 Comments: Placenta manually removed in pieces Datetime: 06/18/2020 16:40 Respirations: 19 Temperature (C): 37.0 LaborFlag: Labor Datetime: 06/18/2020 16:35 Anesthesia Comments: Epidural bolus dose for possible manual removal of retained placenta Datetime: 06/18/2020 16:31 VITAL SIGNS NBP Sys/Judy/Mean (mmHg): 105 : 60 : 70 Pulse: 84 Datetime: 06/18/2020 16:02 UTERINE ACTIVITY Monitor Mode: External Frequency (min): 1.5-3 Quality: Strong Pattern: Normal: <= 5 Contractions in 10 Minutes Resting Tone (Palpate): Relaxed Contraction Comments: Pushing FHR Baseline Rate : 115 Variability: Moderate 6-25 bpm Accelerations: 15X15 Decelerations: Variable Category: Category II Comments: Spotty tracing due to pushing Oxygen Method: Room Air Datetime: 06/18/2020 16:00 SpO2 (%): 100 Datetime: 06/18/2020 15:56 Patient Position/Activity: Right Lateral Datetime: 06/18/2020 15:46 I/O Interventions: Jaramillo Discontinued Datetime: 06/18/2020 15:45 Duration (sec): 70-100 STAGE 2 Pushing: No Urge to Push Pushing Position: Pushing with Contractions; Pushing Lithotomy Pushing Progress: Descent with Pushing Datetime: 06/18/2020 15:42 VAGINAL EXAM Dilatation (cm): 10.0 Exam by: Dr. Jasso Membrane Status: Ruptured Membranes Rupture Method: Artificial Amniotic Fluid Color: Clear Amniotic Fluid Amount: Moderate Amniotic Fluid Odor: Normal Datetime: 06/18/2020 15:30 ASSESSMENT A Monitor Mode: External US Datetime: 06/18/2020 15:07 COMMUNICATION Communication: Call/Page Placed to Provider Provider Notified (Name): Dr. Jasso Communication Comments: Provider notified about latest cervical exam and current bleeding status; p rovider will be in shortly Datetime: 06/18/2020 15:02 Effacement (%): 100 Vaginal Bleeding: Small Cervix, Consistency: Soft Cervix, Position: Midposition Datetime: 06/18/2020 14:19 Monitor Interventions for UA: [place] Adjusted Monitor Interventions for FHR: Ultrasound Adjusted Datetime: 06/18/2020 12:00 Anesthesia Level Check: T10- Umbilicus Datetime: 06/18/2020 11:00 Epidural Procedure: Loading Dose Datetime: 06/18/2020 10:50 PROCEDURE TIME OUT Procedure Verify: Correct Patient Identity; Correct Side and Site are Marked; Accurate Procedure Co nsent Form; Agreement on Procedure to be Done; Correct Patient Position ANESTHESIA Anesthesia Plans: Epidural Epidural Positioning: Sitting Datetime: 06/18/2020 10:48 PATIENT CARE IV/Blood Work: IV Bolus Given ml @ 500 Patient Care Comments: LR@150
--- NOTE | 2020-06-20 12:16 | DISCHARGE SUMMARY ---
Physician: Fatou Jasso MD DATE OF ADMISSION: 06/18/2020 DATE OF DISCHARGE: 06/20/2020 ADMISSION DIAGNOSES: 1. Intrauterine at 40 weeks and 4 days. 2. Spontaneous labor. 3. Rubella nonimmune. 4. Varicose veins. DISCHARGE DIAGNOSES: 1. Status post spontaneous vaginal delivery at term. 2. Retained placenta. 3. hemorrhage. 4. Status post blood transfusion. 5. Varicose veins. 6. Rubella nonimmune. PROCEDURE: 06/18/2020, spontaneous vaginal delivery of a liveborn . Her first and second stage s were uncomplicated. On her third stage she had a retained placenta. At manual placental extractio n she began hemorrhaging. This was resolved with multiple uterotonics and completion of the manual p lacental extraction. She was brought to the OR for possible dilation and curettage, which she anelethan darlinefela did not need. She was transfused with 2 units of packed red blood cells and 2 units of FFP due to the severity and acuity of her bleeding. HOSPITAL COURSE: The patient was admitted and delivered as listed above. Her course was remarkable for her feeling quite well. Following her hemorrhage, her bleeding was scant. She was am bulating, urinating, and without difficulties. No problems with mood, breasts, chest p ain, headache, or dizziness. She did have significant pain in her superficial varicose veins on her left side. These had been present prior to her and the swelling of these veins flared post . This was treated with leg elevation, SCDs, and warm compresses with improvement in her pain. She did not develop entire leg swelling, warmth or tenderness to indicate concerns for DVT. PHYSICAL EXAMINATION: Her discharge examination was unremarkable. She was afebrile with normal pricila l signs. She was alert and smiling, and in no apparent distress. The abdomen was soft, nontender, a nd nondistended. The fundus was firm, nontender, and 3 cm below the umbilicus. There was trace ankl e edema bilaterally. Her left leg varicose veins were soft and without redness or firmness. She is Rh positive, rubella nonimmune, and status post both her Tdap and influenza vaccines. She rec eived an MMR vaccine prior to discharge. DISCHARGE DISPOSITION: Home. CONDITION: Good. FOLLOWUP: In 1 week with [facility]. PRECAUTIONS: Routine precautions given. TD: 06/20/2020 09:39
== END 2020-06-20 11:30 | disposition home or self-care (01) | DRG 806 ==
LOC: WFO 08:18 → FBP 08:25 → WFO 09:11 → FBP 09:12
PROVIDERS: ADMIT Obstetrics & Gynecology; ATTEND Obstetrics & Gynecology
PROC: 0KQM0ZZ Repair Perineum Muscle, Open Approach (ICD-10-PCS; 2020-06-18)
PROC: 10E0XZZ Delivery of Products of Conception, External Approach (ICD-10-PCS; 2020-06-18)
PROC: 10D17Z9 Manual Extraction of Products of Conception, Retained, Via Natural or Artificial Opening (ICD-10-PCS; principal; 2020-06-18 17:00)
DX: O70.1 Second degree perineal laceration during delivery (principal); O72.2 Delayed and secondary postpartum hemorrhage; Z37.0 Single live birth; O67.9 Intrapartum hemorrhage, unspecified; O22.03 Varicose veins of lower extremity in pregnancy, third trimester; O69.81X0 Labor and delivery complicated by cord around neck, without compression, not applicable or unspecified; Z20.822 Contact with and (suspected) exposure to COVID-19; Z3A.40 40 weeks gestation of pregnancy
CPT/HCPCS: 36415; 85025; 86850; 86900; 86901; 86920; 87635; A9270; J0330; J2210; J7120; P9016; P9017

== ENCOUNTER 2020-06-25 10:50 | Emergency (ER) | payer OTHER ==
--- NOTE | 2020-06-25 11:23 | ED Physician Documentation ---
History of Present Illness - Stated complaint Stated Complaint: RT LEG SWELLING/PX - Chief complaint Chief Complaint: Ext Problem - History obtained from History obtained from: Patient, Family - History of Present Illness Timing: Today - Additonal information Additional information: 30-year-old female who is recently delivered has had some difficulty with varic ose veins during her and these became more engorged as the progressed and today she is complaining of firm tender varicose veins on the right leg. She denies any shortness of breath or rapid heart rate she denies any chest pain she does have pain in her leg and she states that she is always had these varicose vein throughout the entire they became worse during the and now they are firm and tender. They have never been firm the way they are now. She is concerned about the possibility of deep vein thrombosis. Her was complicated by a problem with retained placenta that required manual extraction and transfusion of 2 units of packed red cells and plasma. She is 1 week . Review of Systems Constitutional: denies: Fever Eyes: denies: Decreased vision Ears: denies: Ear pain Nose: denies: Rhinorrhea / runny nose, Reviewed and negative Throat: denies: Sore throat Cardiac: denies: Chest pain / pressure, Palpitations Respiratory: denies: Dyspnea, Cough GI: denies: Abdominal Pain, Abdominal Swelling, Nausea, Vomiting : denies: Dysuria, Frequency Skin: denies: Rash Musculoskeletal: reports: Extremity pain, Extremity swelling. denies: Neck pain, Back pain Neurologic: denies: Generalized weakness, Focal weakness, Numbness PD PAST MEDICAL HISTORY - Past Medical History Cardiovascular: None Respiratory: None Neuro: None Endocrine/Autoimmune: None GI: None RN LPN CNA: None : None HEENT: None Psych: None Musculoskeletal: None Derm: None - Past Surgical History Past Surgical History: No HEENT: Tonsil/Adenoidectomy - Present Medications Home Medications: Ambulatory Orders Medication Instructions Recorded Confirmed Pnv No.121/Iron/Folic Acid 1 tab ORAL DAILY 10/11/17 06/25/20 [ Multivitamin Tablet] Ferrous Sulfate 325 mg PO DAILY 06/25/20 06/25/20 Ibuprofen [Motrin] 800 mg PO Q8H PRN 06/25/20 06/25/20 Rivaroxaban [Xarelto] 15 mg PO BID #42 tablet 06/25/20 - Allergies Allergies/Adverse Reactions: Allergies Allergy/AdvReac Type Severity Reaction Status Date / Time amoxicillin AdvReac Hives Verified 06/25/20 10:58 Penicillins AdvReac Hives Verified 06/25/20 10:58 sulfamethoxazole AdvReac Hives Verified 06/25/20 10:58 [From Bactrim] trimethoprim [From Bactrim] AdvReac Hives Verified 06/25/20 10:58 - Social History Does the pt smoke?: No Smoking Status: Never smoker Does the pt drink ETOH?: No Does the pt have substance abuse?: No - Immunizations Immunizations are current?: Yes - POLST Patient has POLST: No PD ED PE NORMAL - Vitals Vital signs reviewed: Yes (hypertensive mild ) - HEENT HEENT: Atraumatic, PERRL, EOMI - Respiratory Respiratory: No respiratory distress - Derm Derm: Normal color, Warm and dry, No rash - Extremities Extremities: No deformity, Other (There are tender firm varicosities on the right medial thigh radiating to the medial calf. 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 No evidence of thrombosis involving the deep venous system of the right lower extremity. Thrombus identified in the greater saphenous vein and medial varicosities vein of the superficial venous system in the right lower extremity.), EMP read indepedently, See rad report PD MEDICAL DECISION MAKING - ED course Complexity details: reviewed old records, reviewed results, re-evaluated patient, considered differential, d/w patient, d/w family ED course: 30-year-old female who is 1 week has an increase in the clot burden of her superficial thrombophlebitis on her left leg. She has varicose veins that have thrombosed that involve her calf and her thigh. These are extensive and firm and tender. Her ultrasound imaging shows these thrombosed veins and no thrombosis in the deep vein system. The extent of her clot burden is enough that she is at an intermediate risk for embolization. She is a candidate for a 45-day anticoagulation for superficial thrombophlebitis. The patient is concerned about taking anticoagulation as she has recently delivered and had a problem with bleeding and required a transfusion. The bleeding was related to the placenta and the patient's bleeding now is actually well controlled. She states that is less than a normal menstrual period.We have placed the patient on Xarelto 15 mg twice daily for 3 weeks then to increase to 20 mg once per day and the patient will need follow-up with her primary. Departure - Departure Disposition: 01 Home, Self Care Clinical Impression: Superficial thrombophlebitis Qualifiers: Superficial thrombophlebitis-Involved body area: lower extremity Laterality: right Qualified Code(s): I80.01 - Phlebitis and thrombophlebitis of superficial vessels of right lower extremity Condition: Stable Instructions: ED DVT, ED Phlebitis Superficial Follow-Up: Shannon Agudelo CNM, [employer] [Primary Care Provider] - Prescriptions: Rivaroxaban [Xarelto] 15 mg PO BID #42 tablet Discharge Date/Time: 06/25/20 15:47
--- NOTE | 2020-06-25 14:19 | Ultrasound Report ---
PROCEDURE: Duplex Ext Veins Right INDICATIONS: increased varicosities firm and tender TECHNIQUE: Real-time imaging, as well as color and pulse Doppler interrogation, were performed of the lower extr emity deep veins from the inguinal ligament to the popliteal fossa. COMPARISON: None. FINDINGS: The deep veins are normally compressible, and free of intraluminal thrombus. Color and pu lse Doppler demonstrate normal phasic intraluminal flow. There is normal augmentation response to di stal compression maneuver. Occlusive thrombus identified in the distal greater saphenous narrowing and medial varicose vein of t he superficial venous system at the level of the proximal and medial calf. IMPRESSION: 1. No evidence of thrombosis involving the deep venous system of the right lower extruded. 2. Thrombus identified in the greater saphenous vein and medial varicose vein of the superficial veno us system of the right lower extremity. Reviewed by: Eve Cabrera MD, PhD on 06/25/2020 1:18 PM [place] Approved by: Eve Cabrera MD, PhD on 06/25/2020 1:18 PM [facility] Station ID: [id number]
[2020-06-25 15:22] VITALS: BP 121/83
== END 2020-06-25 15:47 | disposition home or self-care (01) ==
LOC: ED 10:50
DX: O87.0 Superficial thrombophlebitis in the puerperium (principal)
CPT/HCPCS: 99284